=== PATIENT | female | born 1945 | race Caucasian/White ===

== ENCOUNTER 2022-11-17 10:53 | Emergency (ER) | payer MEDICARE, OTHER, SELFPAY ==
[2022-11-17 11:04] VITALS: BP 102/62; PULSE 61; RESP 18; TEMP 36.2; O2SAT 97; BMI 23.7
--- NOTE | 2022-11-17 12:11 | ED_ITS ---
HPI - General Adult General Time Seen by Provider: 12:11 Date Seen: 11/17/22 Chief complaint: Extremity Pain/Injury, Lower Stated complaint: infected toe on left foot Time Seen by Provider: 11/17/22 11:14 History of Present Illness HPI narrative: This is a very pleasant 77-year-old female with a history of onychomycosis affecting her toenails, hypertension,. She does not have a history of diabetes, cancer, immunosuppression, coronary artery disease, stroke peripheral artery disease. She presents to the ER today with redness and scaliness affecting the left foot 2nd toe. She 1st noticed it when she got up in the morning about a we ek ago. She did not have any antecedent injury or trauma. She has been keeping an eye on it has been getting a little bit red as the days go by and is painful and stings little bit. She is worried it might be infected. She has not had any swelling or redness moving up her foot or no red streaks on her legs. She has not had any other associated infection symptoms such as fever or chills, body aches, malaise. No known trauma. Related Data Home Medications Medication Instructions Recorded Confirmed atenolol 50 mg tablet 50 mg PO BID 11/17/22 11/17/22 furosemide 20 mg tablet 20 mg PO QAM 11/17/22 11/17/22 hydrochlorothiazide 25 mg tablet 25 mg PO BID 11/17/22 11/17/22 hydromorphone 4 mg tablet 4 mg PO Q3-4H PRN pain 11/17/22 11/17/22 levothyroxine 125 mcg tablet 125 mcg PO QAM 11/17/22 11/17/22 temazepam 15 mg capsule mg PO 11/17/22 Previous Rx's Medication Instructions Recorded cephalexin 500 mg capsule 500 mg PO QID #14 caps 11/17/22 cephalexin 500 mg capsule 500 mg PO QID #28 caps 11/17/22 Allergies Allergy/AdvReac Type Severity Reaction Status Date / Time desvenlafaxine Allergy Unknown Verified 11/17/22 11:10 mirtazapine Allergy Unknown Verified 11/17/22 11:10 NSAIDS (Non-Steroidal Allergy Unknown Verified 11/17/22 11:10 Anti-Inflamma [NSAIDS (Non-Steroidal Anti-Inflammatory Drug)] olanzapine Allergy Unknown Verified 11/17/22 11:10 Pristiq Allergy Unknown Uncoded 05/13/22 13:50 quentiapine Allergy Unknown Uncoded 05/13/22 13:50 Remeron Allergy Unknown Uncoded 05/13/22 13:50 Seroquel Allergy Unknown Uncoded 05/13/22 13:50 Exam Narrative: Exam Narrative: Constitutional: Appears well-developed and well-nourished. Alert. Conversant. Non toxic. HENT: Head: Atraumatic. Nose: Nose normal. Mouth/Throat: Oral mucosa is clear and moist. no trismus. Pharynx normal. Tonsils symmetric. No tonsillar enlargement, erythema, or exudate. Eyes: Conjunctivae normal. EOM normal. Pupils equal, round, and reactive to light. No scleral icterus. Neck: Normal range of motion. Neck supple. No tracheal deviation present. Cardiovascular: Normal rate, regular rhythm. No gallop. No friction rub. No murmur heard. Symmetric radial artery pulses . ANGELIC below Pulmonary/Chest: Effort normal. No stridor. No respiratory distress. No wheezes. No rales. No rhonchi . No tenderness. Abdominal: Soft. Bowel sounds normal. No distension. No mass. No tenderness. No rebound. No guarding. Musculoskeletal: RUE: Normal range of motion. No tenderness. No deformity LUE: Normal range of motion. No tenderness. No deformity RLE: Normal range of motion. No edema. No tenderness. No deformity LLE: Normal range of motion in her hip, knee, ankle, and her toes. Other than her left foot 2nd toe, no abnormality. No deformity She has redness and swelling affecting the distal 2/3 of her left 2nd toe. The redness appears to be slightly dark violaceous red rather than a bright pinkish re. The distal skin of the toe pad is scaly. There is no definite blackness or eschar to suggest gangrene. She has normal cap refill and symmetric with her right foot in the great toe and 2nd toe bilaterally. She has strong symmetric DP and PT pulses. Ankle brachial index is 0.97 on the right and 0.98 on the left. She has thickening and onychomycosis of all the toes on both feet. No definite paronychia. Lymph: No ascending lymphangitis Neurological: Alert and oriented to person, place, and time. Normal strength. CN II-VII intact. No sensory deficit. GCS eye subscore is 4. GCS verbal subscore is 5. GCS motor subscore is 6. Normal coordination Skin: Skin is warm and dry. No rash noted. No pallor. Normal capillary refill. Psychiatric: Normal mood. Normal affect. Const: Vital Signs, click to edit/add: Vital Signs - 24 hr 11/17/22 11:04 Temperature 97.1 F L Pulse Rate [Right Pulse Oximeter] 61 Respiratory Rate 18 Blood Pressure [Ri ght Upper Arm] 102/62 Pulse Oximetry 97 Oxygen Delivery Me thod Room Air Course Course ED Course: A calculated ABIs. ANGELIC right lower extremity 0.97 ANGELIC left lower extremity 0.98 Reevaluation(s) Reevaluation #1: Stable doing well. Vital Signs Vital signs: Initial Vital Signs Temperature 97.1 F L 11/17/22 11:04 Temperature Source Temporal Artery Scan 11/17/22 11:04 Pulse Rate 61 11/17/22 11:04 Respiratory Rate 18 11/17/22 11:04 Blood Pressure 102/62 11/17/22 11:04 Blood Pressure Mean 75 11/17/22 11:04 Blood Pressure Position Sitting 11/17/22 11:04 Pulse Oximetry 97 11/17/22 11:04 Oxygen Delivery Method Room Air 11/17/22 11:04 Vital Signs Temperature 97.1 F L 11/17/22 11:04 Pulse Rate 61 11/17/22 11:04 Respiratory Rate 18 11/17/22 11:04 Blood Pressure 102/62 11/17/22 11:04 Pulse Oximetry 97 11/17/22 11:04 Oxygen Delivery Method Room Air 11/17/22 11:04 Temperature 97.1 F L 11/17/22 11:04 Pulse Rate 61 11/17/22 11:04 Respiratory Rate 18 11/17/22 11:04 Blood Pressure 102/62 11/17/22 11:04 Pulse Oximetry 97 11/17/22 11:04 Oxygen Delivery Method Room Air 11/17/22 11:04 Medical Decision Making MDM Narrative Medical decision making narrative: This patient presents for evaluation of skin redness affecting the 2nd toe on her left foot. The history, physical exam is consistent with cellulitis. No definite area of paronychia. There do not appear at this time to be any complication of cellulitis including abscess, necrotizing fascitis, lymphangitis, lymphadenitis, osteomyelitis, sepsis, or shock. To no history of trauma raise concern for fracture. She does have onychomycosis which may be the window for infection. She does have a little bit of some purplish redness instead of bright pink redness which raise concern for possible ischemia. There is no associated gangrene. She does have normal cap refill symmetric with the other foot and symmetric/normal ABIs. Strong symmetric DP and PT pulses. No evidence for any acute limb ischemia. The patient is not immunosuppressed or diabetic. Supportive outpatient management is indicated with antibiotics. The patient is instructed to follow-up with primary care physician to ensure no progression and rapid resolution and given precautions to return if high fever, spread greater than 2cm outside of the marked area, worsening pain, vomiting or any other worsening. Questions answered and return precautions reviewed. Discharge Plan Discharge Clinical Impression: Cellulitis of toe, left Patient Disposition: Home, Self-Care Condition: Stable Instructions: Cellulitis (ED) Additional Instructions: As we discussed, we would expect her toe to get better over the next 3-4 days. If your not substantially and nearly completely improved by next Monday, follow up with her doctor. If you get worse, return to the ER right away. In particular, come back right away if you have spreading redness, red streaks moving up your foot or leg, fever or chills, weakness, or if you develop symptoms of poor blood flow such as blue discoloration of your foot, pallor, numbness in your foot or worsening pain. Activity Level: No Restrictions Discharge Diet: Regular Prescriptions: New cephalexin 500 mg capsule 500 mg PO QID Qty: 14 0RF cephalexin 500 mg capsule 500 mg PO QID Qty: 28 0RF No Action temazepam 15 mg capsule PO levothyroxine 125 mcg tablet 125 mcg PO QAM hydrochlorothiazide 25 mg tablet 25 mg PO BID furosemide 20 mg tablet 20 mg PO QAM hydromorphone 4 mg tablet 4 mg PO Q3-4H PRN (Reason: pain) atenolol 50 mg tablet 50 mg PO BID Stand Alone Forms: MyHealth Info Instructions
--- OUTSIDE RECORDS SUMMARY | 2022-11-17 12:54 | XMS_ITS | Continuity of Care Document ---
Author Name Unknown Organization [facility] Address [address] [place] [address] Phone Care Team Providers Care Orthodontist Vice President Name Role Phone Clifton Leggett MD Unavailable Unavailable Allergies, Adverse Reactions, Alerts Substance Reaction Status Criticality No Known Allergies Active No Inform ation Medications Medication Instructions Dosage Effective Dates (start - stop) Status Comments TEMAZEPAM (unknown strength) Not Available - Active CONZIP (unknown strength) Not Available - Active ALPRAZOLAM INTENSOL (unknown strength) Not Available - Active TIROSINT (unknown strength) Not Available - Active Procedures Procedure Date Office/Outpatient Visit,Est, Mod 2022 OFFICE/OUTPATIENT VISIT EST Phone Postop Followup Visit TLIF - Includes PSF at the same level - PA GOINS FACETC/FRMT ARTHRD LUM 1 Posterior Instrumentation, Non-segmental - PA PEEK/ Cage/ Implant, For Interbody Fusio n - PA Autograft, From Same Incision Pa Assist TLIF - Includes PSF at the same level Fe GOINS FACETC/FRMT ARTHRD LUM 1 Posterior Instrumentation, Non-segmental PEEK/ Cage/ Implant, For Interbody Fusio n Allograft, Morcelized, and/or BMP Autograft, From Same Incision Feb-21-202 3 Office/Outpatient Visit,Est, Mod 2022 Office/Outpatient Visit,New, Mod 2021 Office/Outpatient Visit,New, Mod 2013 Advance Directives Directive Yes / No Effective Date File Name No Information Encounters Encounter Description Practice Location Reason(s) For Visit Diagnoses Date Provider Providers Copied on Encounter Office/Outpa tient Visit,Est, Mod [facility], [address], [place], [place], [id number], [place] tel:[phone] [facility] Other spondylosis, lumbar regionOther spondylosis, thoracic region 3 Oleksandr Hardyothy. [facility] [place], [facility] [address] [place] [address], [address], [id number] , [place]. tel:[phone] Referring Provider: Lanette Lee [facility] [address] [place], [address]. tel:[phone] OFFICE/OUTPA TIENT VISIT EST Phone [facility], [address], [place], [id number], [place] tel:[phone] [facility] No Information 3 Oleksandr Hardyothy. [facility] [place], [address] [place] [address], [place] [address], [place], [place], [id number] , [place]. tel:[phone] Referring Provider: Lanette Lee [facility] [address] [place], [address]. tel:[phone] [facility], [address], [place], [address], [place] tel:[phone] [facility] Encounter for follow-up examination after completed treatment for conditions other than malignant neoplasm 3 Jaylen Birmingham. [facility] [place], [facility] E [address] [place] [address], [place], [address], [place]. tel:[phone] Referring Provider: Lanette Lee [facility] [address] [place], [address]. tel:[phone] [facility], [address], [place], [address], [place] tel:[phone] [facility] No Information 3 Jaylen Birmingham. [facility], [address] [address], [place], [address], [place]. tel:[phone] Referring Provider: Lanette Lee [facility] [address], [place], [address]. tel:[phone] [facility], [address], [place], [place], [address], [place] tel:[phone] [facility] No Information 3 Oleksandr Lazo. [facility] [place], [address] [place] [address], [address], [id number] , [place]. tel:[phone] Referring Provider: Lanette Lee [facility] [address] , [place], [address]. tel:[phone] Office/Outpa tient Visit,Est, Mod [facility], [address], [place], [place], [address], [place] tel:[phone] [facility] [place] Spinal stenosis, lumbar region with neurogenic claudicationOt her forms of scoliosis, site unspecifiedArt hrodesis status 3 Oleksandr Lazo. [facility] [place], [address], [place] [address], [place], [place], [id number] , [place]. tel:[phone] Referring Provider: Lanette Lee [facility] [address], [place], [address]. tel:[phone] Office/Outpa tient Visit,New, Mod [facility], [address], [place], [address], [place] tel:[phone] [facility] Spinal stenosis, lumbar region with neurogenic claudicationOt her forms of scoliosis, site unspecifiedSpo ndylolisthesis , lumbar regionArthrode sis status 2 Oleksandr Lazo. [facility] [place], [address], [place] [address], [place], [place], [id number] , [place]. tel:[phone] Referring Provider: Lanette Lee, [facility] [address], [place], [address]. tel:[phone] Office/Outpa tient Visit,New, Mod Z [facility], [address], [place], [address], [place] tel:[phone] [facility] No Information 4 Oleksandr Lazo. [facility], [address], [address], [place], [place], [address] , [place]. tel:[phone] Referring Provider: Carolann Parker, [facility] [address] [place], [address]. tel:[phone] Family History Family Member Type Diagnosis Age At Onset Problem (finding) Payers Payer name Insurance type Covered alliance party ID Authoriza tiartie(s) [employer] Wilfredo [id number] Social History Type Description Quantity Date Captured Comments Alcohol Use Details Unknown Caffeine Use Details Unknown Tobacco Use Status No Information Smoking Status No Information Sex Female Vital Signs Date / Time: Height Weight BMI Pulse Rate Blood Pressure Temperature Respiratory Rate Body Surface Area Head Circumference Head Circ. Percentile Wt./Renato. Percentile BMI percentile Pulse Ox Inhaled Ox 3:28 PM 63.00 in 58.513 kg (129.00 lbs) 22.8 5 kg/m eter (2) Chief Complaint And Reason For Visit No [...]
--- OUTSIDE RECORDS SUMMARY | 2022-11-17 12:54 | XMS_ITS | Continuity of Care Document ---
Author Name Unknown Organization [facility] Address [address] [place] [address] Phone Care Team Providers Care Combination Machine Tool Operator Name Role Phone Clifton Leggett MD Unavailable [...] tient Visit,Est, Mod [facility], [address], [place], [place], [address], [place] tel:[phone] [facility] Other spondylosis, lumbar regionOther spondylosis, thoracic region 3 Oleksandr Hardyothy. [facility] [place], [facility] [address] [place] [address], [address], [id number] , [place]. tel:[phone] Referring Provider: Lanette Lee [facility] [address] [place], [address]. tel:[phone] OFFICE/OUTPA TIENT VISIT EST Phone [facility], [address], [place], [id number], [place] tel:[phone] [facility] No Information 3 Oleksandr Hardyothy. [facility] [place], [address] [place] [address], [place] [address], [place], [place], [id number] , [place]. tel:[phone] Referring Provider: Lanette Lee [facility] [address] [place], [address]. tel:[phone] [facility], [address], [place], [address], [place] tel:[phone] [facility] Encounter for follow-up examination after completed treatment for conditions other than malignant neoplasm 3 Jaylen Birmingham. [facility] [place], [facility] [address] [place] [address], [place], [address], [place]. tel:[phone] Referring Provider: Lanette Lee [facility] [address] [place], [address]. tel:[phone] [facility], [address], [place], [address], [place] tel:[phone] [facility] No Information 3 Jaylen Birmingham. [facility], [address] [address], [place], [address], [place]. tel:[phone] Referring Provider: Lanette Lee [facility] [address], [place], [address]. tel:[phone] [facility], [address], [place], [place], [address], [place] tel:[phone] [facility] No Information 3 Oleksandr Lazo. [facility] [place], [address] [place] [address], [address], [id number] , [place]. tel:[phone] Referring Provider: Lanette Lee [facility] [address] , [place], [address]. tel:[phone] Office/Outpa tient Visit,Est, Mod [facility], [address], [place], [place], [id number], [place] tel:[phone] [facility] [place] Spinal stenosis, lumbar region with neurogenic claudicationOt her forms of scoliosis, site unspecifiedArt hrodesis status 3 Oleksandr Lazo. [facility] [place], [address] [place], [place] [address], [place], [place], [id number] , [place]. tel:[phone] Referring Provider: Lanette Lee [facility] [address], [place], [address]. tel:[phone] Office/Outpa tient Visit,New, Mod [facility], [address], [place], [address], [place] tel:[phone] [facility] Spinal stenosis, lumbar region with neurogenic claudicationOt her forms of scoliosis, site unspecifiedSpo ndylolisthesis , lumbar regionArthrode sis status 2 Oleksandr Lazo. [facility] [place], [address] [place], [place] [address], [place], [place], [address] , [place]. tel:[phone] Referring Provider: Lanette Lee, [facility] [address], [place], [address]. tel:[phone] Office/Outpa tient Visit,New, Mod Z [facility], [address], [place], [address], [place] tel:[phone] [facility] No Information 4 Oleksandr Lazo. [facility], [address], [address], [place], [place], [id number] , [place]. tel:[phone] Referring Provider: Carolann Parker, [facility] [address] [place], [address]. tel:[phone] Family History Family Member Type Diagnosis Age At Onset Problem (finding) Payers Payer name Insurance type Covered democrat ID Authoriza tiartie(s) [employer] Wilfredo [id number] Social History Type Description Quantity Date Captured [...]
== END 2022-11-17 12:57 | disposition home or self-care (01) ==
LOC: ED 12:51
PROVIDERS: Emergency Provider Emergency Medicine
DX: L03.031 Cellulitis of right toe (principal)
CPT/HCPCS: 99283; 99284

== ENCOUNTER 2023-01-28 15:59 | Emergency (ER) | payer MEDICARE, OTHER, SELFPAY ==
[2023-01-28 16:02] VITALS: BP 184/73; PULSE 62; RESP 16; TEMP 36.3; O2SAT 99; BMI 23.3
--- NOTE | 2023-01-28 16:53 | ED.ABDPAIN ---
HPI - Abdominal Pain General Chief Complaint: Abdominal Pain Stated Complaint: abdominal pain Time Seen by Provider: 01/28/23 16:09 History of Present Illness HPI narrative: This 77-year-old female comes in reporting sudden onset of severe abdominal pain that occurred a bit after taking her regularly scheduled Dilaudid medication. She states that she has a duodenal ulcer. She has chronic back pain and has had numerous surgeries in various areas of her body. She states that she takes Dilaudid 4 mg every 3-4 hours as needed. She reports that her pain is much better at this time. She denies having any fever, nausea, vomiting, diarrhea, or dysuria symptoms. Related Data Home Medications Medication Instructions Recorded Confirmed atenolol 50 mg tablet 50 mg PO BID 11/17/22 01/28/23 furosemide 20 mg tablet 20 mg PO QAM 11/17/22 01/28/23 hydromorphone 4 mg tablet 4 mg PO Q3-4H PRN pain 11/17/22 01/28/23 levothyroxine 125 mcg tablet 125 mcg PO QAM 11/17/22 01/28/23 temazepam 15 mg capsule mg PO 11/17/22 pregabalin 150 mg capsule 150 mg PO 3XD 01/28/23 01/28/23 triamterene 37.5 1 tab PO QAM 01/28/23 01/28/23 mg-hydrochlorothiazide 25 mg tablet valacyclovir 1 gram tablet 1,000 mg PO 3XD 01/28/23 valacyclovir 500 mg tablet 500 mg PO DAILY 01/28/23 01/28/23 Previous Rx's Medication Instructions Recorded cephalexin 500 mg capsule 500 mg PO QID #14 caps 11/17/22 cephalexin 500 mg capsule 500 mg PO QID #28 caps 11/17/22 pantoprazole 20 mg tablet,delayed 20 mg PO DAILY #30 tabs 01/28/23 release (Protonix) Allergies Allergy/AdvReac Type Severity Reaction Status Date / Time desvenlafaxine Allergy Unknown Verified 01/28/23 16:13 mirtazapine Allergy Unknown Verified 01/28/23 16:13 NSAIDS (Non-Steroidal Allergy Unknown Verified 01/28/23 16:13 Anti-Inflamma [NSAIDS (Non-Steroidal Anti-Inflammatory Drug)] olanzapine Allergy Unknown Verified 01/28/23 16:13 quentiapine Allergy Unknown Uncoded 05/13/22 13:50 Remeron Allergy Unknown Uncoded 05/13/22 13:50 Seroquel Allergy Unknown Uncoded 05/13/22 13:50 Review of Systems Status of ROS Reports: 10 or more systems reviewed and unremarkable except as noted in History and below Narrative Constitutional: No fevers, no weight gain or loss. Eyes: No discharge. No vision changes. HENT: No congestion, no sore throat, no ear pain. Cardiovascular: No chest pain, no palpitations. Respiratory: No shortness of breath, no wheezes, no cough. Gastrointestinal: No vomiting, no diarrhea. Abdominal pain as described above. Genitourinary: No dysuria, no hematuria. Musculoskeletal: Normal range of motion. Chronic back pain. Skin: No rashes, no pruritis. Neurological: No dizziness, weakness, sensory change, speech change. Endo/Heme/Allergies: No bruising or bleeding. No polydipsia. Pysch: no suicidality, no anxiety, no insomnia. All other systems reviewed and are negative. PFSH PFSH Social History Smoking Status: Former smoker Do you use any of these nicotine containing products: None Second hand tobacco smoke exposure: No How often do you have a drink containing alcohol: never AUDIT-C Alcohol total score: 0 Non-prescribed substance use: denies use Exam Narrative: Exam Narrative: Constitutional: Well-developed, well-nourished, no acute distress. HEENT: Normocephalic, atraumatic. Neck: Normal range of motion. Nontender. Supple. Heart: Regular. No murmurs. Normal rate. Intact distal pulses. Lungs: Clear to auscultation. No chest discomfort. No wheezes, rhonchi, or rales. Abdomen: Normal bowel sounds. Nontender. No rebound tenderness. Genitalia: Deferred. Back: No midline tenderness. Normal range of motion. Extremities: Normal range of motion. Her left middle finger is bandaged in a splint. Skin: Intact. No rash. Warm. No erythema or pallor. Neurologic: No altered sensation. No weakness. Alert and oriented. Psychiatric: No suicidality. No anxiety or depression. No insomnia. Nursing notes and vitals signs are reviewed. Const: Vital Signs, click to edit/add: Vital Signs - 24 hr 01/28/23 16:02 Temperature 97.4 F L Pulse Rate [Pulse Oximeter] 62 Respiratory Rate 16 Blood Pressure [Ri ght Upper Arm] 184/73 H Pulse Oximetry 99 Oxygen Delivery Me thod Room Air Course Vital Signs Vital signs: Initial Vital Signs Temperature 97.4 F L 01/28/23 16:02 Temperature Source Temporal Artery Scan 01/28/23 16:02 Pulse Rate 62 01/28/23 16:02 Respiratory Rate 16 01/28/23 16:02 Blood Pressure 184/73 H 01/28/23 16:02 Blood Pressure Mean 110 H 01/28/23 16:02 Blood Pressure Position Sitting 01/28/23 16:02 Pulse Oximetry 99 01/28/23 16:02 Oxygen Delivery Method Room Air 01/28/23 16:02 Vital Signs Temperature 97.4 F L 01/28/23 16:02 Pulse Rate 62 01/28/23 16:02 Respiratory Rate 16 01/28/23 16:02 Blood Pressure 184/73 H 01/28/23 16:02 Pulse Oximetry 99 01/28/23 16:02 Oxygen Delivery Method Room Air 01/28/23 16:02 Temperature 97.4 F L 01/28/23 16:02 Pulse Rate 62 01/28/23 16:02 Respiratory Rate 16 01/28/23 16:02 Blood Pressure 184/73 H 01/28/23 16:02 Pulse Oximetry 99 01/28/23 16:02 Oxygen Delivery Method Room Air 01/28/23 16:02 MDM - Abdominal Pain MDM Narrative Medical decision making narrative: This 77-year-old woman had rather sudden onset of severe upper epigastric abdominal pain which is now almost completely resolved. I am able to palpate deeply into her abdomen and she has no rebound tenderness. Bowel sounds are normal. Patient has chronic pain issues and is taking large doses of Dilaudid. She is not on any proton pump inhibitor. I did discuss lab and imaging options with the patient and stated reassurance with her exam and vital signs. She declined any further studies at this time. She feels okay to return home as her symptoms have almost completely resolved. She did receive a prescription for Protonix. Discharge Plan Discharge Clinical Impression: Abdominal pain Patient Disposition: Home, Self-Care Condition: Improved Additional Instructions: Take medication as prescribed. Follow up with MD return if worsening symptoms occur. Prescriptions: New pantoprazole [Protonix] 20 mg tablet,delayed release (DR/EC) 20 mg PO DAILY Qty: 30 2RF No Action temazepam 15 mg capsule PO levothyroxine 125 mcg tablet 125 mcg PO QAM furosemide 20 mg tablet 20 mg PO QAM hydromorphone 4 mg tablet 4 mg PO Q3-4H PRN (Reason: pain) atenolol 50 mg tablet 50 mg PO BID cephalexin 500 mg capsule 500 mg PO QID Qty: 14 0RF cephalexin 500 mg capsule 500 mg PO QID Qty: 28 0RF valacyclovir 1 gram tablet 1,000 mg PO 3XD valacyclovir 500 mg tablet 500 mg PO DAILY triamterene-hydrochlorothiazid 37.5-25 mg tablet 1 tab PO QAM pregabalin 150 mg capsule 150 mg PO 3XD Follow Up/Referrals: Provider,Not a Local [Primary Care Provider] - Stand Alone Forms: MyHealth Info Instructions
--- OUTSIDE RECORDS SUMMARY | 2023-01-28 17:08 | XMS_ITS | Continuity of Care Document ---
Author Name Unknown Organization [facility] Address [address], [address] [place] [address] Phone Care Team Providers Care Topper Press Operator Automatic Name Role Phone Ezra Cole MD Unavailable [...] Ju Inj Anes Facet Jt; Lumb/sac-2nd Level Advance Directives Directive Yes / No Effective Date File Name No Information Encounters Encounter Description Practice Location Reason(s) For Visit Diagnoses Date Provider Providers Copied on Encounter [facility], [address], [address], [place], [address], [place] tel:[phone] [facility] No Information 0 5 Kelsey Munguia. [address], [place], [place], [address] , [place]. tel:[phone] Referring Provider: Ezra Grider, [address], [place], [address]. tel:[phone] [facility], [address], [place], [place], [address], [place] tel:[phone] [facility] No Information 0-201 5 Kelsey Munguia. [address], [place], [place], [address] , [place]. tel:[phone] Referring Provider: Pebbles TORRES, [address] [facility], [facility], [place], [address]. tel:[phone] Family History Family Member Type Diagnosis Age At Onset No Information Payers Payer name Insurance type Covered constitution party ID Authorizabella smallwood(s) [employer] CI [id number] Social History Type Description Quantity Date Captured [...]
--- OUTSIDE RECORDS SUMMARY | 2023-01-28 17:08 | XMS_ITS | Continuity of Care Document ---
Author Name Unknown Organization [facility] Address [address] [place] [address] Phone Care Team Providers Care Tire Manager Name Role Phone Clifton Leggett MD Unavailable Unavailable Allergies, Adverse Reactions, Alerts Substance Reaction Status Criticality No Known Allergies Active No Inform ation Medications Medication Instructions Dosage Effective Dates (start - stop) Status Comments TIROSINT (unknown strength) Not Available - Active ALPRAZOLAM INTENSOL (unknown strength) Not Available - Active CONZIP (unknown strength) Not Available - Active TEMAZEPAM (unknown strength) Not Available - Active Procedures [...] Diagnoses Date Provider Providers Copied on Encounter [facility], [address], [place], [place], [id number], [place] tel:[phone] No Information 3 Oleksandr Lazo. [facility] [place], [address] [place] [address], [address], [id number] , [place]. [phone] Office/Outpa tient Visit,Est, Mod [facility], [address], [place], [place], [address], [place] [phone] [facility] Other spondylosis, lumbar regionOther spondylosis, thoracic region 3 Oleksandr Lazo. [facility] [place], [address] [place] [address], [facility] [address], [place], [id number] , [place]. tel:[phone] Referring Provider: Lanette Lee [facility] [address], [place], [address]. tel:[phone] OFFICE/OUTPA TIENT VISIT EST Phone [facility], [address], [place], [place], [address], [place] tel:[phone] [facility] No Information 3 Oleksandr Lazo. [facility] [place], [address], [address], [place], [place], [address] , [place]. tel:[phone] Referring Provider: Lanette Lee [facility] [address] , [place], [address]. tel:[phone] [facility], [address], [place], [place], [address], [place] tel:[phone] [facility] [place] Encounter for follow-up examination after completed treatment for conditions other than malignant neoplasm 3 Todd Birmingham. [facility] [place], [address], [place], [address], [place]. [phone] Referring Provider: [facility] [address], [place], [address]. tel:[phone] [facility], [address], [place], [place], [address], [place] tel:[phone] [facility] No Information 3 Todd Birmingham. [facility], [address], [place], [address], [place]. [phone] Referring Provider: Sravan [facility] [address], [place], [address]. tel:[phone] [facility], [address], [place], [place], [address], [place] tel:[phone] [facility] No Information 3 Oleksandr Lazo. [facility], [address], [address], [place], [place], [address] , [place]. tel:[phone] Referring Provider: Sravan [facility] [address], [place], [address]. tel:[phone] Office/Outpa tient Visit,Est, Mod [facility], [address], [place], [place], [address], [place] tel:[phone] [facility] [place] Spinal stenosis, lumbar region with neurogenic claudicationOt her forms of scoliosis, site unspecifiedArt hrodesis status 3 Oleksandr Lazo. [facility], [address], [address], [place], [place], [address] , [place]. [phone] Referring Provider: Lanette Lee [facility] [address], [place], [address]. tel:[phone] Office/Outpa tient Visit,New, Mod [facility], [address], [place], [place], [address], [place] tel:[phone] [facility] Spinal stenosis, lumbar region with neurogenic claudicationOt her forms of scoliosis, site unspecifiedSpo ndylolisthesis , lumbar regionArthrode sis status 2 Oleksandr Lazo. [facility], [address], [address], [place], [place], [address] , [place]. [phone] Referring Provider: Lanette Lee, [facility] [address], [place], [address]. tel:[phone] Office/Outpa tient Visit,[facility], [facility] Z [facility] [place], [address] [facility], [place], [address], [place] tel:[phone] [facility] No Information 4 Oleksandr Lazo. [facility], [address], [address], [place], [place], [address] , [place]. [phone] Referring Provider: Carolann Parker, [facility] [address], [place], [address]. tel:[phone] Family History Family Member Type Diagnosis Age At Onset Problem (finding) Payers Payer name Insurance type Covered constitution party ID Authoriza tion(s) [employer] Wilfredo STRATTON [id number] Social History Type Description Quantity Date Captured Comments Sex Female Smoking Status No Information Chief Complaint And Reason For Visit No [...]
== END 2023-01-28 17:19 | disposition home or self-care (01) ==
LOC: ED 17:06
PROVIDERS: Emergency Provider Emergency Medicine Emergency Medical Services; PCP Family Medicine
DX: R10.13 Epigastric pain (principal)
CPT/HCPCS: 99283; 99284

== ENCOUNTER 2025-01-22 13:16 | Emergency (ER) | payer MEDICARE, OTHER, SELFPAY ==
--- OUTSIDE RECORDS SUMMARY | 2014-08-13 08:15 | XMS_ITS | Continuity of Care Document ---
Author Organization [facility] Address [address] [place] [address] Phone Care Team Providers Care Structural Manager Name Role Phone Ezra Cole MD Unavailable Unavailable Medications Medication Instructions Dosage Effective Dates (start - stop) Status Comments Tirosint 75 mcg capsule take 1 capsule by oral route every day 75 MCG - Active temazepam 30 mg capsule take 1 capsule by oral route every day at bedtime as needed 30 MG - Active Xanax 1 mg tablet take 1 tablet by ora l route 3 times every day 1 MG - Active tramadol 50 mg tablet take 1 tablet by o ral route every 6 hours as needed 50 MG - Active metoprolol tartrate 50 mg tablet take 1 tablet by oral route 2 times every day with meals 50 MG - Active Procedures Procedure Date Inj Anes Facet Jt; Lumb/sac-2nd Level Ju Inj Anes Facet Jt; Lumb/sac-1st Level Ju Inj Anes Facet Jt; Lumb/sac-1st Level Ju Inj Anes Facet Jt; Lumb/sac-2nd Level Ju Advance Directives Directive Yes / No Effective Date File Name No Information Encounters Encounter Description Practice Location Reason(s) For Visit Diagnoses Date Provider Providers Copied on Encounter [facility], [address], [address], [place], [address], [place] tel:[phone] [facility] [place] No Information 0 5 Kelsey Munguia. [address], [place], [place], [address] , [place]. tel:[phone] Referring Provider: Ezra Grider, [address], [place], [address]. tel:[phone] [facility], [address], [place], [place], [address], [place] tel:[phone] [facility] No Information 0-201 5 Kelsey Munguia. [address], [place], [place], [address] , [place]. tel:[phone] Referring Provider: Pebbles TORRES, [address] [facility], [facility], [place], [address]. tel:[phone] Family History Family Member Type Diagnosis Age At Onset No Information Payers Payer name Insurance type Covered democrat ID izabella smallwood(s) [employer] Select-Commercial CI [id number] Social History Type Description Quantity Date Captured Comments Alcohol Use Details Unknown Caffeine Use Details Unknown Tobacco Use Status Never smoked tobacco 2014 Smoking Status Never smoker Non-Smoking Tobacco Use Details : No Details Available : No Details Available Sex Female Vital Signs Date / Time: Height Weight BMI Pulse Rate Blood Pressure Temperature Respiratory Rate Body Surface Area Head Circumference Head Circ. Percentile Wt./Renato. Percentile BMI percentile Pulse Ox Inhaled Ox 1:41 PM 64 /min 158/76 mm[Hg] 98.20 F 99 % 2:15 PM 71 /min 163/84 mm[Hg] 100 % 2:20 PM 69 /min 150/88 mm[Hg] 100 % 2:25 PM 74 /min 167/98 mm[Hg] 100 % 2:57 PM 70 /min 156/80 mm[Hg] 72 % 2:35 PM 69 /min 143/73 mm[Hg] 74 % Chief Complaint And Reason For Visit No Information Reason For Referral Reason For Referral No Information History Of Present Illness Encounter Date Complaint History Of Prese nt Illness No Information Functional Status Date Functional Assessmen t No Information Instructions Date Instruction Additional Infor mation No Information Assessments Type Assessment Date No Information Patient Care Teams Name Effective Dates (start - stop) Status Members No Information
--- OUTSIDE RECORDS SUMMARY | 2014-08-13 08:15 | XMS_ITS | Continuity of Care Document ---
Author Organization [facility] Address [address] [place] [address] Phone Care Team Providers Care Sales Correspondence Clerk Name Role Phone Ezra Cole MD Unavailable [...] Diagnoses Date Provider Providers Copied on Encounter [facility], [address], [address], [place], [address], [place] tel:[phone] [facility] [place] No Information 0 5 Kelsey Munguia. [address], [place], [place], [address] , [place]. tel:[phone] Referring Provider: Ezra Grider, [address], [place], [address]. tel:[phone] [facility], [address], [place], [place], [address], [place] tel:[phone] [facility] [place] No Information 0-201 5 Kelsey Munguia. [address], [place], [place], [address] , [place]. tel:[phone] Referring Provider: Pebbles TORRES, [address] [facility], [facility], [place], [address]. tel:[phone] Family History Family Member Type Diagnosis Age At Onset No Information Payers Payer name Insurance type Covered democrat ID izabella smallwood(s) [employer] Select-Commercial CI [id number] Social History Type Description Quantity Date Captured [...]
--- OUTSIDE RECORDS SUMMARY | 2014-08-13 08:15 | XMS_ITS | Continuity of Care Document ---
Author Organization [facility] Address [address] [place] [address] Phone Care Team Providers Care Air Twister Winder Name Role Phone Ezra Cole MD Unavailable [...] Diagnoses Date Provider Providers Copied on Encounter [facility], [address], [address], [place], [address], [place] tel:[phone] [facility] [place] No Information 0 5 Kelsey Munguia. [address], [place], [place], [address] , [place]. tel:[phone] Referring Provider: Ezra Grider, [address], [place], [address]. tel:[phone] [facility], [address], [place], [place], [address], [place] tel:[phone] [facility] [place] No Information 0-201 5 Kelsey Munguia. [address], [place], [place], [address] , [place]. tel:[phone] Referring Provider: Peblbes TORRES, [address] [facility], [facility], [place], [address]. tel:[phone] Family History Family Member Type Diagnosis Age At Onset No Information Payers Payer name Insurance type Covered constitution party ID izabella smallwood(s) Med[employer] Select-Commercial CI [id number] Social History Type Description Quantity Date Captured [...]
--- OUTSIDE RECORDS SUMMARY | 2014-08-13 08:15 | XMS_ITS | Continuity of Care Document ---
Author Organization [facility] Address [address] [place] [address] Phone Care Team Providers Care Chain Maker Loom Control Name Role Phone Ezra Cole MD Unavailable Unavailable Medications Medication Instructions Dosage Effective Dates (start - stop) Status Comments metoprolol tartrate 50 mg tablet take 1 tablet by oral route 2 times every day with meals 50 MG - Active tramadol 50 mg tablet take 1 tablet by o ral route every 6 hours as needed 50 MG - Active Xanax 1 mg tablet take 1 tablet by ora l route 3 times every day 1 MG - Active temazepam 30 mg capsule take 1 capsule by oral route every day at bedtime as needed 30 MG - Active Tirosint 75 mcg capsule take 1 capsule by oral route every day 75 MCG - Active Procedures Procedure Date Inj Anes Facet Jt; Lumb/sac-2nd Level Ju Inj Anes Facet Jt; Lumb/sac-1st Level Ju Inj Anes Facet Jt; Lumb/sac-1st Level Ju Inj Anes Facet Jt; Lumb/sac-2nd Level Ju Advance Directives Directive Yes / No Effective Date File Name No Information Encounters Encounter Description Practice Location Reason(s) For Visit Diagnoses Date Provider Providers Copied on Encounter [facility], [address], [address], [place], [address], [place] tel:[phone] [facility] No Information 0 5 Kelsey Munguia. [address], [place], [place], [address] , [place]. tel:[phone] Referring Provider: Ezra Grider, [address], [place], [address]. tel:[phone] [facility], [address], [place], [place], [address], [place] tel:[phone] [facility] No Information 0-201 5 Kelsey Munguia. [address], [place], [place], [address] , [place]. tel:[phone] Referring Provider: Pebbles TORRES, [address] [facility], [facility], [place], [address]. tel:[phone] Family History Family Member Type Diagnosis Age At Onset No Information Payers Payer name Insurance type Covered alliance party ID izabella smallwood(s) [employer] Select-Commercial CI [id number] Social History Type Description Quantity Date Captured [...]
--- OUTSIDE RECORDS SUMMARY | 2014-08-13 08:15 | XMS_ITS | Continuity of Care Document ---
Author Organization [facility] Address [address] [place] [address] Phone Care Team Providers Care Drug Abuse Program Coordinator Name Role Phone Ezra Cole MD Unavailable [...] Copied on Encounter [facility], [address], [address], [place], [address], [place] tel:[phone] [facility] [place] No Information 0 5 Kelsey Munguia. [address], [place], [place], [address] , [place]. tel:[phone] Referring Provider: Ezra Grider, [address], [place], [address]. tel:[phone] [facility], [address], [place], [place], [address], [place] tel:[phone] [facility] No Information 0-201 5 Kelsey Munguia. [address], [place], [place], [address] , [place]. tel:[phone] Referring Provider: Pebbles TORRES, [address] [facility], [facility], [place], [address]. tel:[phone] Family History Family Member Type Diagnosis Age At Onset No Information Payers Payer name Insurance type Covered alliance party ID izabella smallwood(s) Med[employer] Select-Commercial CI [id number] Social History Type Description Quantity Date Captured [...]
--- OUTSIDE RECORDS SUMMARY | 2014-08-13 08:15 | XMS_ITS | Continuity of Care Document ---
Author Organization [facility] Address [address] [place] [address] Phone Care Team Providers Care Foreclosure Field Inspector Name Role Phone Ezra Cole MD Unavailable [...] Diagnoses Date Provider Providers Copied on Encounter [facility], [address], [address], [place], [address], [place] tel:[phone] [facility] [place] No Information 0 5 Kelsey Munguia. [address], [place], [place], [address] , [place]. tel:[phone] Referring Provider: Ezra Grider, [address], [place], [address]. tel:[phone] [facility], [address], [place], [place], [address], [place] tel:[phone] [facility] [place] No Information 0-201 5 Kelsey Munguia. [address], [place], [place], [address] , [place]. tel:[phone] Referring Provider: Pebbles TORRES, [address] [facility], [facility], [place], [address]. tel:[phone] Family History Family Member Type Diagnosis Age At Onset No Information Payers Payer name Insurance type Covered libertarian ID izabella smallwood(s) Med[employer] Choice Select-Commercial CI [id number] Social History Type Description Quantity Date Captured [...]
--- OUTSIDE RECORDS SUMMARY | 2025-01-22 13:19 | XMS_ITS | Clinical Summary ---
Author Organization [facility] Address [address] [place] [address]. [place] [address] Care Team Providers Care Export Sales Manager Name Role Phone Lanette Lee Primary Care Provider Allergies No known active allergies Medications ALPRAZolam (XANAX) 1 MG tablet [ALPRAZOLAM (XANAX) 1 MG TABLET] Take 0.5 mg by mouth every 6 (six) hours as needed for anxiety. 10/28/2014 Active cholecalciferol , vitamin D3, 2,000 unit cap [CHOLECALCIFE ROL, VITAMIN D3, 2,000 UNIT CAP] Take 2,000 Units by mouth daily. 10/28/2014 Active levothyroxine (SYNTHROID, LEVOTHROID) 75 MCG tablet [LEVOTHYROXIN E (SYNTHROID, LEVOTHROID) 75 MCG TABLET] Take 75 mcg by mouth daily. 10/28/2014 Active MULTIVITAMIN ORAL [MULTIVITAMIN ORAL] Take 1 tablet by mouth daily. 10/28/2014 Active temazepam (RESTORIL) 15 mg capsule [TEMAZEPAM (RESTORIL) 15 MG CAPSULE] Take 15 mg by mouth bedtime as needed, may repeat once for sleep. 10/28/2014 Active metoprolol tartrate (LOPRESSOR) 50 MG tablet [METOPROLOL TARTRATE (LOPRESSOR) 50 MG TABLET] Take 50 mg by mouth 2 (two) times a day. 10/30/2014 Active levofloxacin (LEVAQUIN) 500 MG tablet [LEVOFLOXACIN (LEVAQUIN) 500 MG TABLET] Take 500 mg by mouth daily. For 5 days 10/29/2014 Active polyethylene glycol (MIRALAX) 17 gram packet [POLYETHYLENE GLYCOL (MIRALAX) 17 GRAM PACKET] Take 17 g by mouth as needed. Uses 2-3 times per week 10/30/2014 Active Active Problems Problem Noted Date Diagnosed Date Spondylolisthesis at L4-L5 level 10/30/2014 Essential hypertension 10/30/2014 Insomnia 10/30/2014 Anxiety disorder 10/30/2014 Hypothyroidism 10/30/2014 Chronic pain 10/30/2014 Family History Medical History Relation Comments Anesthesia Reaction No family hx of Social History Tobacco Use Types Packs/Day Years Used Date Smoking Tobacco: Former Cigarettes Q uit: 03/06/1964 Alcohol Use Standard Drinks/Week Comments No 0 (1 standard drink = 0.6 oz pur e alcohol) Adolescent Education Answer Date Record ed Getting School Help Needed Not on file 11/26 Comments Unknown Sex and Gender Information Value Date Recorded Sex Assigned at Not on file Legal Sex Female 1:45 PM CDT Gender Identity Not on file Sexual Orientation Not on file Last Filed Vital Signs Vital Sign Reading Time Taken Comments Blood Pressure 167/80 09/14/2022 5:42 PM CDT Pulse 80 09/14/2022 5:42 PM CDT Temperature 36.7 C (98 F) 09/14/2022 5:42 PM CDT Respiratory Rate 20 09/14/2022 5:42 PM CDT Oxygen Saturation 99% 09/14/2022 5:42 PM CDT Inhaled Oxygen Concentration - - Weight 57.6 kg (127 lb) 10/28/2014 2:00 PM CDT Height 165.1 cm (5' 5) 10/28/2014 2:00 PM CDT Body Mass Index 21.13 10/28/2014 2:00 PM CDT Plan of Treatment Health Maintenance Due Date Last Done Comments ADVANCE CARE PLANNING 1945 ANNUAL REVIEW OF HM ORDERS 1945 DEXA 1945 TARIK ASSESSMENT 1945 PHQ-9 1945 TSH W/FREE T4 REFLEX 1945 HEPATITIS C SCREENING 07/21/1963 LIPID 1985 LUNG CANCER SCREENING 07/21/1995 FALL RISK ASSESSMENT 2010 RSV VACCINE (1 - 1-dose 75+ series) 2020 BMP 05/10/2023 05/09/2022 MEDICARE ANNUAL WELLNESS VISIT 07/13/2023 07/12/2022, 12/22/2020, 10/25/2019 PHQ-2 (once per calendar year) 2024 COVID-19 VACCINE ( season) 2024 12/14/2021, 10/12/2021, 01/26/2021, Additional history exists INFLUENZA VACCINE (#1) 2024 , 12/17/2020, 12/17/2020, Additional history exists DIABETES SCREENING 05/09/2025 05/09/2022 DTAP/TDAP/TD VACCINE (3 - Td or Tdap) 03/30/2032 03/30/2022, 03/11/2011, 07/04/2002 PNEUMOCOCCAL VACCINE 50+ YEARS Completed 07/23/2015, 03/11/2011 ZOSTER VACCINE Completed 02/14/2020, 11/05, 11/19/2019 HPV VACCINE (No Doses Required) Completed MENINGITIS VACCINE Aged Out No longer eligible based on patient's age to complete this topic Medical Devices Implanted Type Area Supervisor [employer] Device Identifier Shelf Expiration Date Model / Serial / Lot Bone Sub Vitoss Ba2x 2.5cc Foam Pack - - Sna Implanted:Qt y: 1 on 10/30/2014 Bone/Tissue Synthetic N/A: Spine Lumbar ORTHOVITA 11/04/2015 / NA / [id number] Description:Anterior Byproducts Extractor Multifire Medium [id number] - Sn/A Implanted:Qt y: 1 on 10/30/2014 Metallic Hardware/Anc hor N/A: Abdomen [facility] 05/05/2019 MCM20 / N/A / [id number] Spacer Vertebral [id number] 8 Deg - [id number] - Sna Implanted:Qt y: 1 on 10/30/2014 Metallic Hardware/Anc hor Bilateral: Spine Lumbar CHASTITY SP [id number] / NA / NA Description:Anterior Screw Bone 5x25mm - [id number] - Sna Implanted:Qt y: 3 on 10/30/2014 Metallic Hardware/Anc hor Bilateral: Spine Lumbar CHASTITY SP [id number] / NA / NA Description:Anterior Plate Locking [id number] - Sna Implanted:Qt y: 1 on 10/30/2014 Metallic Hardware/Anc hor Bilateral: Spine Lumbar CHASTITY SP [id number] / NA / NA Description:Anterior Bilateral Breasts Lumbar Spacer Procedures Procedure Name Priority Date/Time Associated Diagnosis Comments BASIC METABOLIC PANEL Routine 05/09/2022 7:34 AM SPECIAL EFFECTS TECHNICIAN Essential (primary) hypertension from Last 3 Months or Most Recently Relevant to Health Maintenance Results * (ABNORMAL) Basic metabolic panel (05/09/2022 7:34 AM SPECIAL EFFECTS TECHNICIAN) Sodium 135(L) 136 - 145 mmol/L 05/09/2022 11:56 AM SPECIAL EFFECTS TECHNICIAN [facility] Potassium 4.5 3.4 - 5.3 mmol/L 05/09/2022 11:56 AM SPECIAL EFFECTS TECHNICIAN [facility] Chloride 96(L) 98 - 107 mmol/L 05/09/2022 11:56 AM SPECIAL EFFECTS TECHNICIAN [facility] Carbon Dioxide (CO2) 28 22 - 29 mmol/L 05/09/2022 11:56 AM SPECIAL EFFECTS TECHNICIAN [facility] Anion Gap 11 7 - 15 mmol/L 05/09/2022 11:56 AM SPECIAL EFFECTS TECHNICIAN [facility] Urea Nitrogen 23.2(H) 8.0 - 23.0 mg/dL 05/09/2022 11:56 AM SPECIAL EFFECTS TECHNICIAN [facility] Creatinine 0.68 0.51 - 0.95 mg/dL 05/09/2022 11:56 AM SPECIAL EFFECTS TECHNICIAN [facility] Calcium 9.3 8.8 - 10.2 mg/dL 05/09/2022 11:56 AM SPECIAL EFFECTS TECHNICIAN [facility] Glucose 84 70 - 99 mg/dL 05/09/2022 11:56 AM SPECIAL EFFECTS TECHNICIAN [facility] GFR Estimate 90 >60 mL/min/1.7 3m2 05/09/2022 11:56 AM SPECIAL EFFECTS TECHNICIAN [facility] Comment:eGFR calculated us2020 CKD-EPI equation. Blood STRUCTURE OF RIGHT UPPER LIMB / Unknown Venipuncture / Unknown 05/09/2022 7:34 AM SPECIAL EFFECTS TECHNICIAN 05/09/2022 10:29 AM SPECIAL EFFECTS TECHNICIAN us Marj Otto MD LAB - BLOOD ORDERABLES Final R esult [facility] [address] [facility] [address], [address] [place] [address], [facility] [phone] from Last 3 Months or Most Recently Relevant to Health Maintenance Insurance [address] [facility] [place] [id number] [employer] Care Teams Export Sales Manager Relationship Specialty Start Date End Date Lanette Lee [address] [place] [address] PCP - General Family Practice 02/03/14
--- OUTSIDE RECORDS SUMMARY | 2025-01-22 13:19 | XMS_ITS | Clinical Summary ---
Author Organization [facility] Address [address] [place] [address] Care Team Providers [facility] Associate Professor Name Role Phone Neville Garcia MD Unavailable [phone] Lanette Lee MD Primary Care Provider [phone] Petey Charles MD Unavailable [phone] Allergies Active Allergy Reactions Criticality Noted Date Comments Nsaids (Non-Steroidal Anti-Inflammatory Drug) Nausea Only Low 03/27/2017 Desvenlafaxine Nausea Only 11/12/2021 Mirtazapine Constipation,Mental Status Change Unknown 10/06/2021 Stickney loopy Quetiapine GI Upset Low 10/30/2015 Other reaction(s): GI intolerance Per External Records Trazodone GI Upset Low 10/30/2015 Other reaction(s): Other (see comments) Per External Records Olanzapine Other - Describe In Comment Field 05/01/2022 Seemed to have increased restlessness, tremor Medications MULTIVITAMIN (MULTI-DAY ORAL) Take 1 tablet by mouth once daily. 04/07/19 16 Active cholecalciferol, Vitamin D3, 2,000 unit tablet Take 1 tablet by mouth once daily. 5000 units taken during winter months 0 01/24/20 20 Active omega 6-ozz-jou-fish oil 100-160-1,000 mg cap Take 1 Capsule by mouth once daily. 0 03/30/19 23 Active polyethylene glycol (MIRALAX; GLYCOLAX) 17 g packet Mix 17 g in liquid then take by mouth once daily. May also mix 17 g (1 Packet) once daily if needed for Constipation. 0 05/12/19 23 Active acetaminophen (TYLENOL EXTRA STRGTH) 500 mg tabletIndications: Spinal stenosis of lumbar region with neurogenic claudication Take 1 Tablet (500 mg) by mouth four times daily. 0 07/13/19 23 Active melatonin 10 mg tabIndications:Ins omnia, unspecified type Take 1 Tablet (10 mg) by mouth once daily in the evening. Take 1-2 hours prior to going to bed 12/14/19 Active pantoprazole (PROTONIX) 20 mg tabletIndications: Abdominal pain, epigastric Take 1 Tablet (20 mg) by mouth once daily if needed for GI Upset. 90 Tablet 1 03/26/19 25 Active triamterene-hydroc hlorothiazide (37.5-25 mg) (MAXZIDE-25) 37.5-25 mg tabletIndications: HTN (hypertension) Take 1 Tablet by mouth once daily in the morning. 90 Tablet 3 09/26/19 25 Active atenoloL (TENORMIN) 50 mg tabletIndications: HTN (hypertension) Take 1 Tablet (50 mg) by mouth two times daily. 180 Tablet 3 09/26/19 25 Active valACYclovir (VALTREX) 500 mg tabletIndications: Recurrent oral herpes simplex Take 1 Tablet (500 mg) by mouth once daily. 90 Tablet 3 09/26/19 25 Active naloxone (Narcan) 4 mg/actuation nasal sprayIndications:S angel stenosis of lumbar region without neurogenic claudication,Pain management contract agreement Additional doses may be given every 2 to 3 minutes until emergency medical assistance arrives.ADMINI STER A SINGLE SPRAY OF NARCAN IN ONE NOSTRIL. REPEAT AFTER 3 MINUTES IF NO OR MINIMAL RESPONSE. 1 Each 09/30/19 25 Active cephalexin 500 mg capsuleIndications :Lymphadenitis, acute Take 1 Capsule (500 mg) by mouth three times daily. 30 Capsule 10/30/19 25 Active furosemide (LASIX) 20 mg tabletIndications: Edema, unspecified type,Chronic diastolic congestive heart failure (HC) TAKE 2 TABLETS BY MOUTH IN THE MORNING AND 2 in afternoon 360 Tablet 3 10/30/19 25 Active pregabalin (LYRICA) 150 mg capsuleIndications :Spinal stenosis of lumbar region without neurogenic claudication Take 1 capsule by mouth twice daily 180 Capsule 1 12/05/19 25 Active temazepam (RESTORIL) 15 mg capsuleIndications :Insomnia, unspecified type Take 1 Capsule (15 mg) by mouth at bedtime if needed, may repeat once for Sleep. 60 Capsule 5 12/25/19 25 Active DULoxetine (CYMBALTA) 60 mg Delayed-release capsuleIndications :Recurrent major depressive disorder, in partial remission Take 1 Capsule (60 mg) by mouth two times daily. 180 Capsule 1 12/25/19 25 Active HYDROmorphone 4 mg tabletIndications: Spinal stenosis of lumbar region without neurogenic claudication,Pain management contract agreement Take 1 Tablet (4 mg) by mouth 4 times daily if needed (chronic pain). 120 Tablet 12/28/19 25 Active HYDROmorphone 4 mg tabletIndications: Spinal stenosis of lumbar region without neurogenic claudication,Pain management contract agreement Take 1 Tablet (4 mg) by mouth 4 times daily if needed (chronic pain). 120 Tablet 02/25/20 25 Active HYDROmorphone 4 mg tabletIndications: Spinal stenosis of lumbar region without neurogenic claudication,Pain management contract agreement Take 1 Tablet (4 mg) by mouth 4 times daily if needed (chronic pain). 120 Tablet 01/27/20 25 Active HYDROmorphone 4 mg tabletIndications: Spinal stenosis of lumbar region without neurogenic claudication,Pain management contract agreement Take 1 Tablet (4 mg) by mouth 4 times daily if needed (chronic pain). 120 Tablet 03/25/19 26 Active levothyroxine (SYNTHROID) 112 mcg tabletIndications: Acquired hypothyroidism Take 1 Tablet (112 mcg) by mouth before breakfast. 90 Tablet 3 01/13/20 25 Active temazepam 15 mg capsuleIndications :Insomnia, unspecified type Take 1 Capsule (15 mg) by mouth at bedtime if needed, may repeat once for Sleep. 60 Capsule 5 07/10/19 25 025 Discontin ued(*Med complete/ Regimen complete/ Level of care change) HYDROmorphone 4 mg tabletIndications: Spinal stenosis of lumbar region without neurogenic claudication,Pain management contract agreement Take 1 Tablet (4 mg) by mouth 4 times daily if needed (chronic pain). 120 Tablet 10/26/19 25 025 Discontin ued(Reord er (E-cancel not sent)) levothyroxine (SYNTHROID) 112 mcg tabletIndications: Acquired hypothyroidism Take 1 Tablet (112 mcg) by mouth before breakfast. 90 Tablet 11/05/19 25 025 Discontin ued(Reord er (E-cancel not sent)) DULoxetine (CYMBALTA) 60 mg Delayed-release capsuleIndications :Recurrent major depressive disorder, in partial remission Take 1 Capsule (60 mg) by mouth two times daily. 120 Capsule 11/24/19 25 025 Discontin ued(Reord er (E-cancel not sent)) HYDROmorphone 4 mg tabletIndications: Spinal stenosis of lumbar region without neurogenic claudication,Pain management contract agreement Take 1 Tablet (4 mg) by mouth 3 times daily if needed (chronic pain). 90 Tablet 01/10/20 25 025 Discontin ued(Reord er (E-cancel not sent)) HYDROmorphone 4 mg tabletIndications: Spinal stenosis of lumbar region without neurogenic claudication,Pain management contract agreement Take 1 Tablet (4 mg) by mouth 3 times daily if needed (chronic pain). 90 Tablet 12/12/19 25 025 Discontin ued(Reord er (E-cancel not sent)) Active Problems Problem Noted Date Diagnosed Date Osteopenia of multiple sites 11/14/2024 Overview (11/14/2024): Dexascan 11/2024 moderate ostepenia hips and radius. Plan lifestyle measures, optimize Vitamin D and recheck in 2 years. s/p left total shoulder arth roplasty with 15 degree posterior glenoid augment, biceps resection/transplantation, DOS: 07.2510/11/2023 Hx of duodenal ulcer 04/18/2023 Overview (04/18/2023): 1970's Primary osteoarthritis of left shoulder 04/18/19 Osteoarthritis of left glenohumeral joint 2023 Lumbar spinal stenosis 05/03/2022 Chronic diastolic congestive heart failure 12/22 Right heart enlargement 07/04/2018 Non-rheumatic tricuspid valve insufficiency 03/2018 Pain of right lower extremity 01/27/2018 Pain management contract agreement 12/05/2017 Overview (09/29/2024): Updated 09/25/24 lumbar spinal stenosis . Hydromorphone 4 mg 3-4 per day. Max 64 MME. No further back surgeries recommended. Tox screen 10/2024 Updated 07/25/23 hydromorphone 4 mg ;3-4 per day; max of 4 per day 64 MME. Spinal stenosis and left shoulder OSTEOARTHRITIS with replacement scheduled for September 2023. No further back surgeries recommended. Tox screen 07/25/23. Updated 12/14/21 Oxycodone 5 mg #180 MME 45 spinal stenosis.Lyrica, Plan right SI joint injection and refer to spine clinic for another opinion. Updated 11/10/20 Oxycodone 5 mg #240 MME 60, spinal stenosis. Seeing spine clinic and having injections also. Stable on this dose , also takes lyrica, cymbalta . Compliance screen 05/21/21 Signed contract 12/05/[address] Lanette Lee; Lumbar spinal stenosis s/p anterior and posterior fusions [id number] and s/p right knee surgery and pathologic femur fracture 2017; plan Oxycodone 10 mg three times daily ; tox screen today as expected. Also taking Lyrica, cymbalta, celebrex . Arthritis of knee 03/20/2017 Overview (09/13/2022): Added automatically from request for surgery [id number] Acquired hypothyroidism 07/22/2016 Prediabetes 04/13/2016 Recurrent major depressive disorder, in full rem ission 10/13/2015 Gastritis 06/10/2015 HTN (hypertension) 03/04/2014 Family history of malignant neoplasm of gastrointestinal tract 12/13/2013 Overactive bladder 09/20/2013 Spinal stenosis of lumbar re gion with neurogenic claudication 06/26/2013 Spondylolisthesis 06/26/2013 Anxiety 05/14/2013 Vitamin D deficiency 04/06/2010 Family history of diabetes mellitus 02/05/2010 Postmenopausal atrophic vaginitis 02/05/2010 Insomnia, unspecified 08/31/2007 Unspecified hypothyroidism 12/19/2006 Symptomatic menopausal or female climacteric sta merced Dyspnea History of amiodarone therapy Resolved Problems Problem Noted Date Diagnosed Date Resolved Date Visit for screening mammogram 12/19/2017 09/13/2022 Overview (07/22/2020): 12/08/17, 01/09/19 normal ; 07/21/20 normal wilmer Pathological fracture of fem ur due to osteoporosis 05/07/2017 04/18/2023 Overview (05/15/2017): Overview: Added automatically from request for surgery [id number] Closed supracondylar fracture of femur 05/06/2017 04/18/2023 Fracture of bone adjacent to prosthesis 05/06/2017 04/18/2023 High aspartate aminotransferase level 04/13/2016 09/13/2022 Pain management 10/01/2014 12/05/2017 Overview (10/01/2014): 10/01/14 Spinal stenosis; on Tramadol average 3 per day. Does not want to take percocet or other narcotics unless needed. Screening for malignant neop lasm of the cervix 06/27/2014 09/13/2022 Overview (06/27/2014): 05/2012 Spinal stenosis 05/14/2013 06/26/2013 Screening for osteoporosis 03/11/2011 0 09/13/2022 Overview (03/11/2011): 02/2010 normal dexascan Lipid screening 02/05/2010 09/13/2022 Special screening for malign ant neoplasms, colon 12/10/2008 09/13/2022 Overview (03/13/2019): 11/29/06 colonoscopy normal ; colonoscopy 12/2013 normal recheck 2018 due to family history brother colon cancer; 03/13/19 normal ; no longer need Follow up due to age Other screening mammogram 12/10/2008 Overview (07/23/2016): 05/01/09 normal ; 05/25/12; 06/06/13 ; normal ; had implants Mar 2014 ; had capsular contraction right breast so feels mammogram would be too painful. Will do self breast exams. 07/22/16 normal mammogram Overactive bladder 12/10/2008 4 Routine general medical exam ination at a health care facility 09/13/2022 Overview (12/10/2008): Last pap: 09/16/05-normal; 08/10 normal Last mammo: 10/03/05-normal Last colonoscopy: Last dexa: 08/24/04 normal Last lipids: 11/07/06 Cholesterol: 201 Triglycerides: 86 HDL: 65 LDL: 119 Glucose: 11/07/06 80 Duodenal ulcer, unspecified as acute or chronic, without hemorrhage, perforation, or obstruction 04/18/2023 Overview (04/24/2007): history of duodenal ulcer late Encounters Date Type Department Care Team Description 01/22/2025 Nurse Triage [facility] [address] [facility] [address] Stephanie Peguero RN Arm Pain/problem (Swelling redness laceration from monday) 01/10/2025 2:45 PM SHOE SALESMAN Office Visit [facility] [address] [facility] [place] [phone] Lanette Lee MD Medication Management (3 month follow up) 01/10/2025 Travel 12/27/2024 Telephone [facility] [address] [facility] [place] [phone] Lanette Lee MD Medication Management (HYDROmorphone 4 mg tablet) 12/24/2024 1:30 PM CDT Office Visit [facility] [address] [facility] [place] [phone] Iliana Sotelo NP Follow Up; Medication Management 12/24/2024 Travel 12/11/2024 Refill [facility] [address] [facility] [place] [phone] Lanette Lee MD Refill Request (HYDROmorphone 4 mg tablet /) 12/03/2024 Refill [facility] [address] [place] [phone] Lanette Lee MD Refill Request (Pregabalin) 11/22/2024 Refill [facility] [address] [place] [phone] Iliana Sotelo, ADRYAN Refill Request (Duloxetine) 11/14/2024 Orders Only [facility] [address] [place] [phone] Lanette Lee MD <No scans attached> 11/12/2024 2:31 PM CDT - 11/12/2024 11:59 PM CDT Hospital Encounter [facility] [address] [facility] [place] [address] Lanette Lee MD Osteopenia of both hips; Visit for screening mammogram 11/12/2024 Travel 11/04/2024 Orders Only [facility] [address] [place] [address] Lanette Lee MD <No scans attached> 10/29/2024 3:10 PM CDT Office Visit [facility] [address] [facility] [place] [phone] Lanette Lee MD Medicare ANNUAL (subsequent) Visit (Is not fasting) 10/29/2024 Travel from Last 3 Months Immunizations Immunization Administration Dates Next Due AMB Influenza, IIV3 (Age >=3 years)(Flu Clinic Only) 02/07/2009 COVID-19 VACCINE SPIKEVAX (M ODERNA 50MCG/0.5ML) 12YO+ PFS 06/25/2024 COVID-19 vaccine (Moderna 100mcg/0.5mL) PF, MDV 01/26/2021,05/22/2020,04/24/2020 COVID-19 vaccine (Cayo-Tech-Bio NTech 30mcg/0.3mL) 12YO+ BIVALENT PF, MDV 12/14/2021 COVID-19 vaccine (Cayo-Tech-Bio NTech 30mcg/0.3mL) 12YO+ SERG-SUCROSE PF, MDV 10/12/2021 HepA-HepB (Twinrix) 11/27/2024 Influenza Virus, Unspecified 11/18/2016,01/02/20 15 Influenza, High-dose Inactivated 025,11/15/2023,12/17/2020,11/18,01/01/2015,12/31/2013 Influenza, High-dose Quadriv alent Inactivated 11/26/2019 Influenza, IIV3 (Age 6-35 mos) 02/07/2009 Influenza, IIV3 (Age >=3 years) 02/05/2010,01/04 Influenza, Inactivated AIIV4 (Age 65+ Years) Preserv Free 11/23/2022,11/10/2021 Influenza, Inactivated IIV3 (Age 65+ Years) Preserv Free 11/28/2018,12/05/2017,11/18/2016 Pneumococcal Conj 20-valent (Prevnar 20) 11/15/2023 Pneumococcal Poly,23-Valent (Pneumovax) 03/11/2011 Pneumococcal conj 13-Valent (Prevnar 13) 07/23/2015 RSV, Recombinant ADJ Reconst ituted (Arexvy 120MCG/0.5mL) 11/15/2023 Td (Age >=7 Years) 07/04/2002 Tdap 03/30/2022,03/11/2011 Zoster (Shingrix-RZV, recombinant) 02/14/2020,,11/19/2019 Family History Medical History Relation Name Comments Cancer Brother 2 Ajay leukemia Cancer-colon Brother 2 Ajay Glaucoma Father Heart Disease Father ID age 90 Hypertension Father Diabetes Maternal Grandmother Hypertension Mother Thyroid Disease Mother hypothyroidi sm Allergies Sister 1 Corinne Diabetes Sister 1 Corinne type 1 Thyroid Disease Sister 1 Corinne hypothyroidi sm Psychiatric illness Sister 2 depressi on Cancer-breast No Family History Relation Name Status Comments Brother 1 (Age 80) heart dise ase Brother 2 Ajay Father Maternal Grandmother Mother (Age 100) Sister 1 Corinne Sister 2 Social History Tobacco Use Types Packs/Day Years Used Date Smoking Tobacco: Former Cigarettes 0.5 4 0 08/04/1960 - 08/04/1964 Passive Smoke Exposure: Past Smokeless Tobacco: Never Tobacco Cessation:Counseling Given: Not Answered Comments:smoked as teenager, quit when 19 years old Alcohol Use Standard Drinks/Week Comments Not Currently 0 (1 standard drink = 0.6 oz pur e alcohol) PHQ-2 Answer Date Recorded PHQ-2 TOTAL SCORE 0 12/24/2024 Social Connections Answer Date Recorded Do you often feel lonely or isolated from those around you? 0 01/10/2025 Alcohol Use Answer Date Recorded How often do you have a drink containing alcohol ? 1 01/10/2025 How many drinks containing a lcohol do you have on a typical day when you are drinking? 0 01/10/2025 How often do you have five or more drinks on one occasion? 0 01/10/2025 Financial Resource Strain Answer Date R ecorded Difficulty of Paying Living Expenses 3 01/10/2025 Difficulty of Paying Living Expenses Not on file 01/10/2025 Food Insecurity Answer Date Recorded Do you worry your food will run out before you are able to buy more? 1 01/10/2025 Transportation Needs Answer Date Record ed Does lack of transportation keep you from medica l appointments? 1 01/10/2025 Does lack of transportation keep you from work, meetings or getting things that you need? 1 01/10/2025 Housing Stability Answer Date Recorded What is your housing situation today? 1 01/10/2025 Utilities Answer Date Recorded Do you have trouble paying f or utilities (for example, heat, electricity, water, phone)? 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 Not on file Not on file Not on file Obstetrics History Para Term AB IAB SAB Ectopic Multiple Livin g Live Births 6 4 4 2 Date Outcome GA Total Labor Labor/2nd/3rd Weight Sex Type Anes PTL Any A1 A5 Name Clin SAB SAB SAB SAB Comments 1 adopted son also Last Filed Vital Signs Vital Sign Reading Time Taken Comments Blood Pressure 124/66 01/10/2025 2:56 PM SHOE SALESMAN Pulse 72 01/10/2025 2:56 PM SHOE SALESMAN Temperature 36.8 C (98.2 F) 09/29/2023 8:45 AM CDT Respiratory Rate 16 09/29/2023 8:45 AM CDT Oxygen Saturation 99% 01/10/2025 2:56 PM SHOE SALESMAN Inhaled Oxygen Concentration - - Weight 64.7 kg (142 lb 11.2 oz) 01/10/2025 2:56 PM SHOE SALESMAN Height 158.8 cm (5' 2.5) 10/29/2024 3:30 PM CDT Body Mass Index 25.68 10/29/2024 3:30 PM CDT Plan of Treatment Upcoming Encounters Date Type Department Care Team (Late st Contact Info) Description 04/11/2025 2:45 PM SHOE SALESMAN Office Visit [facility] [address] [facility] [place] [phone] Lanette Lee MD [address] [facility] [place] [phone] 06/10/2025 2:30 PM CDT Office Visit [facility] [address] [facility] [place] [phone] Iliana Sotelo NP [address] [facility] [place] [phone] Health Maintenance Due Date Last Done Comments Hepatitis B series for 19+ ( 2 of 3 - Hep B Twinrix 3-dose series) 12/25/2024 11/27/2024 BMI (ht and wt on same day) for age 18+ 10/29/2025 10/29/2024, 12/05/2023, 09/05/2023, Additional history exists Medicare Wellness for age 65+ 10/30/2025, 09/05/2023, 07/12/2022, Additional history exists Depression screening for age 12+ 12/24/2025 12/24/2024, 10/29/2024, 07/09/2024, Additional history exists Tetanus booster 03/30/2032 03/30/2022, 08/2011, 07/04/2002 Hepatitis C screening for ag e 18-79 Completed 09/02/2013 Zoster (shingles) series for age 50+ Completed 02/14/2020, 11/26/2019, 11/19/2019 Pneumococcal series for age 50+ Completed 11/15/2023, 07/23/2015, 03/11/2011 RSV vaccine for adults or Completed 11/15/2023 DEXA/DXA scan for age 65+ Completed 2024, 01/20/2021, 11/14/2017, Additional history exists Influenza Vaccine Completed 11/27/2024, , 11/23/2022, Additional history exists Medical Devices Implanted Type Area Vpk Teacher Device Identifier Shelf Expiration Date Model / Serial / Lot Doug Lmbr 50x5.5mm Tsrh 3d Cvd Titnm - [id number] Implanted:Qty: 1 on 04/26/2022 by Clifton Leggett MD at [facility] Spine Implants N/A: Spine Medtronic Spine/Ortho [id number] / / Toe 2 Ritter Flex Hinge Grommets Sm Stem - [id number] Implanted:Qty: 1 on 11/30/2018 by Jimmy Nassar DPM at [facility] Left: Toe [employer] Ritter flexspan hinge toe 11/26/2025 [id number] / / [id number] Cnnctr Lmbr 5.5x5.5mm Doug Connect Variable Titnm - [id number] Implanted:Qty: 1 on 04/26/2022 by Clifton Leggett MD at [facility] N/A: Spine Medtronic Spine/Ortho [id number] / / Set Screw Lmbr Std Doug Connection Titnm - [id number] Implanted:Qty: 2 on 04/26/2022 by Clifton Leggett MD at [facility] N/A: Spine Medtronic Spine/Ortho [id number] / / [id number] bone 1-10mm 15cc Medtronic Chips Canclls Freeze Dried Implanted:Qty: 1 on 04/26/2022 by Clifton Leggett MD at [facility] N/A: Spine Medtronic Spine/Ortho 04/01/2026 [id number] / [id number] / Spacer Lmbr 7x22mm Capstone Tlif Peek - [id number] Implanted:Qty: 1 on 04/26/2022 by Clifton Leggett MD at [facility] N/A: Spine Medtronic Spine/Ortho 11/19/2028 [id number] / / [id number] Set Screw Lmbr Tsrh 3dx - [id number] Implanted:Qty: 3 on 04/26/2022 by Clifton Leggett MD at [facility] N/A: Spine Medtronic Spine/Ortho [id number] / / Cnnctr Lmbr Sm Tsrh 3dx Offsettitnm - [id number] Implanted:Qty: 2 on 04/26/2022 by Clifton Leggett MD at [facility] N/A: Spine Medtronic Spine/Ortho [id number] / / Cnnctr Lmbr Lg Tsrh 3dx Offsettitnm - [id number] Implanted:Qty: 1 on 04/26/2022 by Clifton Leggett MD at [facility] N/A: Spine Medtronic Spine/Ortho [id number] / / Doug Lmbr 35x5.5mm Tsrh 3d Cvd Titnm - [id number] Implanted:Qty: 1 on 04/26/2022 by Clifton Leggett MD at [facility] N/A: Spine Medtronic Spine/Ortho [id number] / / Screw Lmbr Post 6.5x40mm Tsrh 3dx Og Thin Va - [id number] Implanted:Qty: 2 on 04/26/2022 by Clifton Leggett MD at [facility] N/A: Spine Medtronic Spine/Ortho [id number] / / Screw Lmbr Post 6.5x45mm Tsrh 3dx Og Thin Va - [id number] Implanted:Qty: 1 on 04/26/2022 by Clifton Leggett MD at [facility] N/A: Spine Medtronic Spine/Ortho [id number] / / Cmnt Bone 40g Simplex P Non Atb Mv - [id number] Implanted:Qty: 2 on 09/28/2023 by Jose Luis Rodriguez MD at [facility] Left: Shoulder [employer] 04/05/2025 [id number] / / [id number] Glenoid Sm 15 Deg Lt Aequalis Perform+ Cortiloc - [id number] Implanted:Qty: 1 on 09/28/2023 by Jose Luis Rodriguez MD at [facility] Left: Shoulder [employer] 12/09/2025 [id number] / [id number] / Stem Hum Sz 1b Ascend Flex Lng - [id number] Implanted:Qty: 1 on 09/28/2023 by Jose Luis Rodriguez MD at [facility] Left: Shoulder [employer] 06/28/2028 [id number] / [id number] / Head Hum [id number] Ascend Flex Low Offset - [id number] Implanted:Qty: 1 on 09/28/2023 by Jose Luis Rodriguez MD at [facility] Left: Shoulder [employer] 02/22/2027 [id number] / [id number] / Procedures Procedure Name Priority Date/Time Associated Diagnosis Comments CBC WITH AUTO DIFFERENTIAL Routine 01/10/2025 4:08 PM SHOE SALESMAN Petechiae or ecchymoses CBC WITH AUTO DIFFERENTIAL Routine 01/10/2025 4:08 PM SHOE SALESMAN Petechiae or ecchymoses VITAMIN D 25 (DEFICIENCY) Routine 01/10/2025 4:08 PM SHOE SALESMAN Osteopenia of multiple sites TSH WITH REFLEX Routine 01/10/2025 4:08 PM SHOE SALESMAN Acquired hypothyroidism XR DXA BONE DENSITY 2 SITES AXIAL AND 1 SITE PERIPHERAL Routine 11/12/2024 3:01 PM CDT Osteopenia of both hips XR MAMMO WILMER BILAT SCREEN IMPLANT Routine 11/12/2024 2:56 PM CDT Visit for screening mammogram COMPLIANCE DRUG ANALYSIS Routine 10/29/2024 4:39 PM CDT Pain management contract agreement Therapeutic drug monitoring T4,FREE Routine 10/29/2024 4:14 PM CDT Acquired hypothyroidism HEMOGLOBIN A1C Routine 10/29/2024 4:14 PM CDT Prediabetes TSH WITH REFLEX Routine 10/29/2024 4:14 PM CDT Acquired hypothyroidism LIPID PANEL W REFLEX MEASURED LDL Routine 10/29/2024 4:14 PM CDT Hypercholesterolemia BASIC METABOLIC PANEL Routine 10/29/2024 4:14 PM CDT HTN (hypertension) ANTI HCV Routine 09/02/2013 10:52 AM CDT Need for hepatitis C screening test from Last 3 Months or Most Recently Relevant to Health Maintenance Results * CBC WITH AUTO DIFFERENTIAL (01/10/2025 4:08 PM SHOE SALESMAN) WHITE BLOOD CELL COUNT TNP Thousand/u L 01/10/2025 4:31 PM SHOE SALESMAN [facility] Comment: TEST NOT PERFORMED Specimen received clotted. Blood BLOOD SPECIMEN / Unknown [facility] / Unknown 01/10/2025 4:08 PM SHOE SALESMAN 01/10/2025 4:08 PM SHOE SALESMAN Lanette Lee MD HEMATOLOGY Final Result [facility] [address] [place] [address], [place] [phone] [facility] [address] [place] [address], [place] [phone] * TSH WITH REFLEX (01/10/2025 4:08 PM SHOE SALESMAN) Only the most recent of2 resultswithin the time period is included. TSH W/REFLEX TO FT4 1.89 0.40 - 4.50 mIU/L 01/11/2025 5:19 AM SHOE SALESMAN [facility] Blood BLOOD SPECIMEN / Unknown [facility] / Unknown 01/10/2025 4:08 PM SHOE SALESMAN 01/10/2025 4:08 PM SHOE SALESMAN us Lanette Lee MD CHEMISTRY Final Result Performing Organization Address [facility] Co de Phone Number [facility] [address] [address], * VITAMIN D 25 (DEFICIENCY) (01/10/2025 4:08 PM SHOE SALESMAN) VITAMIN D,25-OH,TOTAL,IA 62 30 - 100 ng/mL 01/11/2025 5:19 AM SHOE SALESMAN [email or web address] Comment: Vitamin D Status 25-OH Vitamin D: Deficiency: <20 ng/mL Insufficiency: 20 - 29 ng/mL Optimal: > or = 30 ng/mL For 25-OH Vitamin D testing on patients on D2-supplementation and patients for whom quantitation of D2 and D3 fractions is required, the QuestAssureD(TM) 25-OH VIT D, (D2,D3), LC/MS/MS is recommended: order code 02122 (patients >2yrs). See Note 1 Note 1 For additional information, please refer to http://education.Balandras/faq/CVI771 (This link is being provided for informational/ educational purposes only.) Blood BLOOD SPECIMEN / Unknown [facility] / Unknown 01/10/2025 4:08 PM SHOE SALESMAN 01/10/2025 4:08 PM SHOE SALESMAN us Lanette Lee MD SEND OUTS Final Result Performing Organization Address [facility] Co de Phone Number [facility] [address] [address], [place] [phone] * XR DXA BONE DENSITY 2 SITES AXIAL AND 1 SITE PERIPHERAL (11/12/2024 3:01 PM CDT) Anatomical Region Laterality Modality LUMBAR SPINE Digital Radiogra phy 11/12/2024 3:01 PM CDT Impressions 11/14/2024 4:03 PM CDT Low bone density (OSTEOPENIA). T-score meets the WHO criteria for low bone density (osteopenia) at one or more measured sites. The risk of osteoporotic fracture increases approximately two-fold for each standard deviation decrease in T-score. Narrative 11/14/2024 4:03 PM CDT For Patients: As a result of the Cures Act, medical imaging exams and procedure reports are released immediately into your electronic medical record. You may view this report before your referring provider. If you have questions, please contact your health care provider. EXAM: XR DXA BONE DENSITY 2 SITES AXIAL AND 1 SITE PERIPHERAL LOCATION: [facility] DATE: 11/12/2024 INDICATION: BMD screening, follow-up exam. DEMOGRAPHICS: Age- 79 years. Gender- Female. Menopausal status- Postmenopausal. COMPARISON: 01/20/2021. TECHNIQUE: Dual-energy x-ray absorptiometry (DXA) performed with routine technique. Forearm DXA performed. FINDINGS: DXA RESULTS -Lumbar Spine: L1-L4 (L3, L4): BMD: 1.448 g/cm2. T-score: 2.4. Z-score: 4.2. -RIGHT Hip Total: BMD: 1.179 g/cm2. T-score: 1.4. Z-score: 3.3. -RIGHT Hip Femoral neck: BMD: 0.820 g/cm2. T-score: -1.6. Z-score: 0.5. -LEFT Hip Total: BMD: 0.983 g/cm2. T-score: -0.2. Z-score: 1.7. -LEFT Hip Femoral neck: BMD: 0.949 g/cm2. T-score: -0.6. Z-score: 1.5. -LEFT Radius 33%: BMD: 0.770 g/cm2. T-score: -1.2. Z-score: 1.4. WHO T-SCORE CRITERIA -Normal: T-score at or above -1 SD -Osteopenia: T-score between -1 and -2.5 SD -Osteoporosis: T-score at or below -2.5 SD The World Health Organization (WHO) criteria is applicable to perimenopausal females, postmenopausal females, and men aged 50 years or older. INTERVAL CHANGE -There has been a 33.2% increase in lumbar spine BMD. -There has been a 3.7% decrease in bilateral hip BMD. -There has been a 4.1% decrease in the left radius 33% BMD. FRACTURE RISK -FRAX Results: The 10 year probability of major osteoporotic fracture is 20.0%, and of hip fracture is 4.5%, based on right femoral neck BMD. RECOMMENDATIONS: The current National Osteoporosis Foundation Guide recommends that FDA-approved medical therapies be considered if the 10 year probability of major osteoporotic fracture risk is greater than or equal to 20%, or if the hip fracture risk is greater than or equal to 3%. Please note all treatment decisions require clinical judgement and consideration of individual patient factors, including patient preferences, comorbidities, previous drug use, risk factors not captured in the FRAX model (e.g. frailty, falls, vitamin D deficiency, increased bone turnover, interval significant decline in bone density) and possible under or over-estimation of fracture risk by FRAX. Procedure Note Zane Romo PA - 11/14/2024 For Patients: As a result of the Cures Act, medical imagingexams and procedure reports are released immediately into your electronicmedical record. You may view this report before your referring provider.If you have questions, please contact your health care provider. EXAM: XR DXA BONE DENSITY 2 SITES AXIAL AND 1 SITE PERIPHERAL LOCATION: [facility] DATE: 11/12/2024 INDICATION: BMD screening, follow-up exam. DEMOGRAPHICS: Age- 79 years. Gender- Female. Menopausal status-Postmenopausal. COMPARISON: 01/20/2021. TECHNIQUE: Dual-energy x-ray absorptiometry (DXA) performed with routinetechnique. Forearm DXA performed. FINDINGS: DXA RESULTS -Lumbar Spine: L1-L4 (L3, L4): BMD: 1.448 g/cm2. T-score: 2.4. Z-score:4.2. -RIGHT Hip Total: BMD: 1.179 g/cm2. T-score: 1.4. Z-score: 3.3. -RIGHT Hip Femoral neck: BMD: 0.820 g/cm2. T-score: -1.6. Z-score: 0.5. -LEFT Hip Total: BMD: 0.983 g/cm2. T-score: -0.2. Z-score: 1.7. -LEFT Hip Femoral neck: BMD: 0.949 g/cm2. T-score: -0.6. Z-score: 1.5. -LEFT Radius 33%: BMD: 0.770 g/cm2. T-score: -1.2. Z-score: 1.4. WHO T-SCORE CRITERIA -Normal: T-score at or above -1 SD -Osteopenia: T-score between -1 and -2.5 SD -Osteoporosis: T-score at or below -2.5 SD The World Health Organization (WHO) criteria is applicable toperimenopausal females, postmenopausal females, and men aged 50 years orolder. INTERVAL CHANGE -There has been a 33.2% increase in lumbar spine BMD. -There has been a 3.7% decrease in bilateral hip BMD. -There has been a 4.1% decrease in the left radius 33% BMD. FRACTURE RISK -FRAX Results: The 10 year probability of major osteoporotic fracture is20.0%, and of hip fracture is 4.5%, based on right femoral neck BMD. RECOMMENDATIONS: The current National Osteoporosis Foundation Guiderecommends that FDA-approved medical therapies be considered if the 10year probability of major osteoporotic fracture risk is greater than orequal to 20%, or if the hip fracture risk is greater than or equal to 3%.Please note all treatment decisions require clinical judgement andconsideration of individual patient factors, including patientpreferences, comorbidities, previous drug use, risk factors not capturedin the FRAX model (e.g. frailty, falls, vitamin D deficiency, increasedbone turnover, interval significant decline in bone density) and possibleunder or over- estimation of fracture risk by FRAX. IMPRESSION: Low bone density (OSTEOPENIA). T-score meets the WHO criteria for low bonedensity (osteopenia) at one or more measured sites. The risk ofosteoporotic fracture increases approximately two-fold for each standarddeviation decrease in T-score. Lanette Lee MD DEXA Final Result * XR MAMMO WILMER BILAT SCREEN IMPLANT (11/12/2024 2:56 PM CDT) Anatomical Region Laterality Modality BREASTS, Breast Left, Breast Right Bilateral Mammography Impressions 11/13/2024 2:29 PM CDT There is no radiographic evidence for malignancy. Recommend annual mammograms. MAMMOGRAM ASSESSMENT: ACR 2 Benign PATIENTS: You will also receive a letter with your examination results in an easy to read format. If you have questions about your results, please contact your referring provider. Narrative 11/13/2024 2:29 PM CDT For Patients: As a result of the Cures Act, medical imaging exams and procedure reports are released immediately into your electronic medical record. You may view this report before your referring provider. If you have questions, please contact your health care provider. XR MAMMO WILMER BILAT SCREEN IMPLANT [[id number]] CLINICAL HISTORY: This is an asymptomatic 79 y.o. patient. INDICATION FOR EXAM: Mammogram Screening. TECHNIQUE: CC and MLO views were obtained. Implant displacement views were obtained. This study was evaluated with the assistance of Computer-Aided Detection. Breast Tomosynthesis was used in interpretation. COMPARISON FILMS: Yes 04/12/22 [facility] 07/21/20 [facility] FINDINGS: There are scattered areas of fibroglandular density. No suspicious masses or microcalcifications. There are breast implant(s) present..,. Lanette Lee MD MAMMO Final Result * (ABNORMAL) Compliance Drug Analysis [[id number]] (10/29/2024 4:39 PM CDT) 6-MONOACETYL MORPHINE NEG NEG ng/mL 11/05/2024 9:45 AM T [facility] AMPHETAMINE URINE NEG <=500 ng/mL 11/05/2024 9:45 AM T [facility] BARBITURATE URINE NEG <=200 ng/mL 11/05/2024 9:45 AM T [facility] BENZODIAZEPINE URINE POS(A) <=100 ng/mL 11/05/2024 9:45 AM T [facility] BUPRENORPHRINE URINE NEG <=5 ng/mL 04/2024 9:45 AM [facility] COCAINE METAB URINE NEG <=300 ng/mL 11/05/2024 9:45 AM [facility] ETHYLGLUCURONIDE URINE NEG <=250 ng/mL 11/05/2024 9:45 AM [facility] FENTANYL URINE NEG <=5 ng/mL 11/05/2024 9:45 AM [facility] METHADONE URINE NEG <=300 ng/mL 11/05/2024 9:45 AM [facility] OPIATES URINE POS(A) <=300 ng/mL 11/05/2024 9:45 AM [facility] OXYCODONE URINE NEG <=100 ng/mL 11/05/2024 9:45 AM [facility] PROPOXYPHENE URINE NEG <=300 ng/mL 11/05/2024 9:45 AM [facility] THC 50 URINE NEG <=50 ng/mL 11/05/2024 9:45 AM [facility] TRAMADOL NEG <=200 ng/mL 11/05/2024 9:45 AM [facility] PH URINE 6.3 5.0 - 7.0 11/05/2024 9:45 AM [facility] CREAT UR 47 >=20 mg/dL 11/05/2024 9:45 AM [facility] MASS SPECTROMETRY See Below 025 9:45 AM [facility] Comment:Diphenhydramine, Eph edrine/Pseudoephedrine, Furosemide and Hydromorphone present. Urine URINE SPECIMEN / Unknown Non-Blood / Unknown 10/29/2024 4:39 PM T 10/29/2024 4:39 PM [facility] - 11/05/2024 9:45 AM [facility] Current Outpatient Medications: acetaminophen (TYLENOL EXTRA STRGTH) 500 mg tablet, Take 1 Tablet (500 mg) by mouth four times daily. atenoloL (TENORMIN) 50 mg tablet, Take 1 Tablet (50 mg) by mouth two times daily. cholecalciferol, Vitamin D3, 2,000 unit tablet, Take 1 tablet by mouth once daily. 5000 units taken during winter months DULoxetine 60 mg Delayed-release capsule, Take 1 Capsule (60 mg) by mouth two times daily. furosemide (LASIX) 20 mg tablet, TAKE 2 TABLETS BY MOUTH IN THE MORNING AND 1 in afternoon [START ON 11/24/2024] HYDROmorphone 4 mg tablet, Take 1 Tablet (4 mg) by mouth 4 times daily if needed (chronic pain). [START ON 10/25/2024] HYDROmorphone 4 mg tablet, Take 1 Tablet (4 mg) by mouth 4 times daily if needed (chronic pain). HYDROmorphone 4 mg tablet, Take 1 Tablet (4 mg) by mouth 4 times daily if needed (chronic pain). levothyroxine (SYNTHROID) 125 mcg tablet, Take 1 Tablet (125 mcg) by mouth before breakfast. melatonin 10 mg tab, Take 1 Tablet (10 mg) by mouth once daily in the evening. Take 1-2 hours prior to going to bed MULTIVITAMIN (MULTI-DAY ORAL), Take 1 tablet by mouth once daily. naloxone (Narcan) 4 mg/actuation nasal spray, Additional doses may be given every 2 to 3 minutes until emergency medical assistance arrives.ADMINISTER A SINGLE SPRAY OF NARCAN IN ONE NOSTRIL. REPEAT AFTER 3 MINUTES IF NO OR MINIMAL RESPONSE. omega 1-qif-den-fish oil 100-160-1,000 mg cap, Take 1 Capsule by mouth once daily. pantoprazole (PROTONIX) 20 mg tablet, Take 1 Tablet (20 mg) by mouth once daily if needed for GI Upset. polyethylene glycol (MIRALAX; GLYCOLAX) 17 g packet, Mix 17 g in liquid then take by mouth once daily. May also mix 17 g (1 Packet) once daily if needed for Constipation. pregabalin (LYRICA) 150 mg capsule, Take 1 Capsule (150 mg) by mouth two times daily. temazepam 15 mg capsule, Take 1 Capsule (15 mg) by mouth at bedtime if needed, may repeat once for Sleep. triamterene-hydrochlorothiazide (37.5-25 mg) (MAXZIDE-25) 37.5-25 mg tablet, Take 1 Tablet by mouth once daily in the morning. valACYclovir (VALTREX) 500 mg tablet, Take 1 Tablet (500 mg) by mouth once daily. No current facility-administered medications for this visit. As of 09/25/2024 Release to patient->Immediate Lanette Lee MD URINE Final Result [facility] [address] [place] [address], [place] * HEMOGLOBIN A1C (10/29/2024 4:14 PM CDT) HEMOGLOBIN A1C 5.5 <5.7 % 10/30/2024 3:20 AM CDT [email or web address] Comment: For the purpose of screening for the presence of diabetes: <5.7% Consistent with the absence of diabetes 5.7-6.4% Consistent with increased risk for diabetes (prediabetes) > or =6.5% Consistent with diabetes This assay result is consistent with a decreased risk of diabetes. Currently, no consensus exists regarding use of hemoglobin A1c for diagnosis of diabetes in children. According to [place] Diabetes Association (ADA) guidelines, hemoglobin A1c <7.0% represents optimal control in non- diabetic patients. Different metrics may apply to specific patient populations. Standards of Medical Care in Diabetes(ADA). Blood BLOOD SPECIMEN / Unknown [facility] / Unknown 10/29/2024 4:14 PM CDT 10/29/2024 4:18 PM CDT Lanette Lee MD CHEMISTRY Final Result [facility] [address] [address], [place] [phone] * (ABNORMAL) LIPID PANEL W REFLEX MEASURED LDL (10/29/2024 4:14 PM CDT) CHOLESTEROL, TOTAL 193 <200 mg/dL 10/30/2024 4:18 AM CDT [facility] TRIGLYCERIDES 174(H) <150 mg/dL 10/30/2024 4:18 AM CDT [facility] HDL CHOLESTEROL 51 > OR = 50 mg/dL 10/30/2024 4:18 AM CDT [facility] NON HDL CHOLESTEROL 142(H) <130 mg/dL (calc) 10/30/2024 4:18 AM CDT [email or web address] Comment: For patients with diabetes plus 1 major ASCVD risk factor, treating to a non-HDL-C goal of <100 mg/dL (LDL-C of <70 mg/dL) is considered a therapeutic option. CHOL/HDLC RATIO 3.8 <5.0 (calc) 10/30/2024 4:18 AM CDT [facility] LDL-CHOLESTEROL 113(H) mg/dL (calc) 10/30/2024 4:18 AM CDT [facility] Comment: Reference range: <100 Desirable range <100 mg/dL for primary prevention; <70 mg/dL for patients with CHD or diabetic patients with > or = 2 CHD risk factors. LDL-C is now calculated using the Lara calculation, which is a validated novel method providing better accuracy than the Friedewald equation in the estimation of LDL-C. Erick PETERSEN et al. RAY. 2013;310(19): 3788-2236 (http://education.Balandras/faq/EAN544) Blood BLOOD SPECIMEN / Unknown [facility] / Unknown 10/29/2024 4:14 PM CDT 10/29/2024 4:18 PM CDT us Lanette Lee MD CHEMISTRY Final Result Performing Organization Address City/[facility]/ZIP Co de Phone Number [email or web address] [address] [address], * T4,FREE (10/29/2024 4:14 PM CDT) T4, FREE 1.3 0.8 - 1.8 ng/dL 10/30/2024 9:14 AM CDT [email or web address] Blood BLOOD SPECIMEN / Unknown [facility] / Unknown 10/29/2024 4:14 PM CDT 10/29/2024 4:18 PM CDT us Lanette Lee MD CHEMISTRY Final Result Performing Organization Address [facility]/ZIP Co de Phone Number [email or web address] [address] [address], [place] [phone] * (ABNORMAL) BASIC METABOLIC PANEL (10/29/2024 4:14 PM CDT) SODIUM 139 135 - 146 mmol/L 10/30/2024 4:18 AM CDT [facility] POTASSIUM 4.0 3.5 - 5.3 mmol/L 10/30/2024 4:18 AM CDT [facility] CARBON DIOXIDE 31 20 - 32 mmol/L 10/30/2024 4:18 AM CDT [facility] GLUCOSE 111(H) 65 - 99 mg/dL 10/30/2024 4:18 AM CDT [facility] Comment: Fasting reference interval For someone without known diabetes, a glucose value between 100 and 125 mg/dL is consistent with prediabetes and should be confirmed with a follow-up test. CALCIUM 9.0 8.6 - 10.4 mg/dL 10/30/2024 4:18 AM CDT [facility] CREATININE 0.89 0.60 - 1.00 mg/dL 10/30/2024 4:18 AM CDT [facility] BUN/CREATININE RATIO 38(H) 6 - 22 (calc) 10/30/2024 4:18 AM CDT [facility] EGFR 66 > OR = 60 mL/min/1.7 3m2 10/30/2024 4:18 AM CDT [facility] UREA NITROGEN (BUN) 34(H) 7 - 25 mg/dL 10/30/2024 4:18 AM CDT [facility] ELECTROLYTE BALANCE 8 7 - 17 mmol/L (calc) 10/30/2024 4:18 AM CDT [facility] CHLORIDE 100 98 - 110 mmol/L 10/30/2024 4:18 AM CDT [facility] Blood BLOOD SPECIMEN / Unknown [facility] / Unknown 10/29/2024 4:14 PM CDT 10/29/2024 4:18 PM CDT us Lanette Lee MD CHEMISTRY Final Result [facility] [address] [place] [address], * ANTI HCV [[id number]] (09/02/2013 10:52 AM CDT) Pathologist [facility] HEPATITIS C ANTIBODY Non-Reacti ve Non-Reacti ve 09/02/2013 6:53 PM CDT [facility] Blood specimen (specimen) BLOOD SPECIMEN / Unknown [facility] / Unknown 09/02/2013 10:52 AM CDT 09/02/2013 10:53 AM CDT Narrative [facility] - 09/02/2013 6:53 PM CDT Antibodies to HCV not detected; does not exclude the possibility of exposure to HCV. Lanette Lee MD SEND OUTS Final Result [facility] [address] [place] [address], [place] from Last 3 Months or Most Recently Relevant to Health Maintenance Insurance [employer] PRIME VUELOGIC MR PB ONLY MEDICARE PART B HB ONLY MEDICA PRIME SOLUTION HB MEDICARE PART A HB ONLY MEDICARE PART A HB ONLY MEDICARE PART B HB ONLY [employer] PRIME SOLUTION HB [place] [id number] Advance Directives Documents on File Type Date Recorded Patient Head Packager Ceci RIBEIRO 05/19/2022 05/19/2022 * Full Code (Latest Code Status on File) Date Activated Date Inactivated Comments 09/28/2023 9:36 AM 09/29/2023 1:28 PM Question Answer Comments Code Status Discussion: Unable to Assess Preferences, Provider to review later * Full Code Date Activated Date Inactivated Comments 04/26/2022 6:54 PM 05/04/2022 4:12 PM Question Answer Comments Code Status Discussion: Reviewed Preferences * Full Code Date Activated Date Inactivated Comments 03/13/2019 9:56 AM 03/13/2019 2:41 PM Question Answer Comments Code Status Discussion: Discussed * Full Code Date Activated Date Inactivated Comments 11/30/2018 7:03 AM 11/30/2018 1:17 PM Question Answer Comments Code Status Discussion: Discussed * Full Code Date Activated Date Inactivated Comments 10/13/2015 12:06 PM 10/16/2015 5:05 PM Question Answer Comments Code Status Discussion: Per Existing Order Care Teams [facility] Associate Professor Relationship Specialty Start Date End Date Lanette Lee MD [address] [place] [id number] PCP - General Family Practice 03/30/18 Neville Garcia MD Surgery - Orthopedics 11/05/13 Petey Charles [facility] [address] [facility] [place] [address] Cardiology Cardiovascular Disease 10/22/19
--- NOTE | 2025-01-22 13:40 | ED.GENADULT ---
HPI - General Adult General Time Seen by Provider: 13:40 Date Seen: 01/22/25 Chief complaint: Skin/Abscess/Foreign Body Stated complaint: R arm infection Time Seen by Provider: 01/22/25 13:22 Source: patient Mode of arrival: ambulatory Limitations: no limitations History of Present Illness HPI narrative: Taylor is a 79-year-old female with history of hypertension, hypothyroidism presents emergency department via private car and self with a possible right arm infection. Patient states 2 days ago she struck her right elbow onto a table corner, at that time did sustain a superficial laceration. Since then the been cleaning it with soap and water. Patient noticed increased redness surrounding the right elbow, she is right-hand dominant, last night there was more swelling going down her right arm with some redness. Patient is not any fevers or chills, patient has full range of motion of the right elbow. She denies any numbness tingling to her upper extremity. Patient has no history of any MRSA. Patient has had cellulitis in the past. Related Data Home Medications ?Medication ?Instructions ?Recorded ?Confirmed atenolol 50 mg tablet 50 mg PO BID 11/17/22 01/22/25 furosemide 20 mg tablet 20 mg PO QAM 11/17/22 01/22/25 hydromorphone 4 mg tablet 4 mg PO Q3-4H PRN pain 11/17/22 01/22/25 levothyroxine 125 mcg tablet 125 mcg PO QAM 11/17/22 01/22/25 temazepam 15 mg capsule mg PO 11/17/22 pregabalin 150 mg capsule 150 mg PO 3XD 01/28/23 01/22/25 triamterene 37.5 1 tab PO QAM 01/28/23 01/22/25 mg-hydrochlorothiazide 25 mg tablet valacyclovir 1 gram tablet 1,000 mg PO 3XD 01/28/23 valacyclovir 500 mg tablet 500 mg PO DAILY 01/28/23 01/28/23 duloxetine 60 mg capsule,delayed 120 mg PO DAILY 01/22/25 01/22/25 release Previous Rx's ?Medication ?Instructions ?Recorded pantoprazole 20 mg tablet,delayed 20 mg PO DAILY #30 tabs 01/28/23 release (Protonix) cefadroxil 500 mg capsule 500 mg PO BID 7 days #14 caps 01/22/25 Allergies Allergy/AdvReac Type Severity Reaction Status Date / Time desvenlafaxine Allergy Unknown Verified 01/28/23 16:13 mirtazapine Allergy Unknown Verified 01/28/23 16:13 NSAIDS (Non-Steroidal Allergy Unknown Verified 01/28/23 16:13 Anti-Inflamma (NSAIDS (Non-Steroidal Anti-Inflammatory Drug)) olanzapine Allergy Unknown Verified 01/28/23 16:13 quentiapine Allergy Unknown Uncoded 05/13/22 13:50 Remeron Allergy Unknown Uncoded 05/13/22 13:50 Seroquel Allergy Unknown Uncoded 05/13/22 13:50 Review of Systems Status of ROS: Reports: 10 or more systems reviewed and unremarkable except as noted in History and below PFSH PFSH Social History Smoking Status: Former smoker Do you use any of these nicotine containing products: None Second hand tobacco smoke exposure: No How often do you have a drink containing alcohol: never AUDIT-C Alcohol total score: 0 Non-prescribed substance use: denies use Exam Narrative: Exam Narrative: General: No obvious distress sitting comfortably HEENT: Pupils equal round reactive to light Neck: Supple Heart: Normal sinus rhythm Lungs: Clear Abdomen: Soft nontender Muscle skeletal: Right upper extremity: There is a 1.5 cm superficial laceration to the olecranon, tender to palpation, there is surrounding erythema that is warm, erythema extends the mid forearm with associated swelling, patient can actively flex and extend that right elbow, no drainage from the laceration site, CMS intact. Neuro: GCS 15 Const: Vital Signs, click to edit/add: Vital Signs - 24 hr 01/22/25 13:46 Temperature 98.1 F Pulse Rate [Pulse Oximeter] 85 Respiratory Rate 20 Blood Pressure [Le ft Upper Arm] 181/80 H Pulse Oximetry 98 Oxygen Delivery Me thod Room Air Course Course ED Course: 2:30 PM: aidet performed, vitals show mildly elevated blood pressure will continue monitor, patient is afebrile, normal O2 sats, respiratory and heart rate, will obtain CBC, CRP, BMP, hold on any imaging at this time, suspect developing cellulitis, no appreciable abscess on exam or drainage, will plan to jennifer the area, IM dose ceftriaxone given here, will plan to discharge with Duricef 500 mg b.i.d. over the next 7 days. Reevaluation(s) Time of Reevaluation #1: 15:49 Reevaluation #1: CBC showed no leukocytosis, comprehensive metabolic panel showed normal electrolytes and renal function, CRP mildly elevated at 4.3, she was given a dose of IM Rocephin 1 g here in the emergency department did well, prescription for Duricef 500 mg b.i.d. over the next 7 days sent to her pharmacy, she will continue with current cares at home, follow-up with primary care provider in the next 7-10 days, return if worsening symptoms. Vital Signs Vital signs: Initial Vital Signs Temperature 98.1 F 01/22/25 13:46 Temperature Source Temporal Artery Scan 01/22/25 13:46 Pulse Rate 85 01/22/25 13:46 Respiratory Rate 20 01/22/25 13:46 Blood Pressure 181/80 H 01/22/25 13:46 Blood Pressure Mean 113 H 01/22/25 13:46 Blood Pressure Position Sitting 01/22/25 13:46 Pulse Oximetry 98 01/22/25 13:46 Oxygen Delivery Method Room Air 01/22/25 13:46 Vital Signs Temperature 98.1 F 01/22/25 13:46 Pulse Rate 85 01/22/25 13:46 Respiratory Rate 20 01/22/25 13:46 Blood Pressure 181/80 H 01/22/25 13:46 Pulse Oximetry 98 01/22/25 13:46 Oxygen Delivery Method Room Air 01/22/25 13:46 Temperature 98.1 F 01/22/25 13:46 Pulse Rate 85 01/22/25 13:46 Respiratory Rate 20 01/22/25 13:46 Blood Pressure 181/80 H 01/22/25 13:46 Pulse Oximetry 98 01/22/25 13:46 Oxygen Delivery Method Room Air 01/22/25 13:46 Medications Administered Medications: Generic Name Dose Route Start Last Admin Trade Name Freq PRN Reason Stop Dose Admin Lidocaine HCl 2.1 ml 01/22/25 14:08 01/22/25 14:54 Lidocaine 1% 5 Ml (Pf) 5 Ml Vial IM 2.1 ml DIRECTED PRN Administration Pain Discontinued Medications Generic Name Dose Route Start Last Admin Trade Name Freq PRN Reason Stop Dose Admin Ceftriaxone Sodium 1 gm 01/22/25 14:08 01/22/25 14:54 Ceftriaxone 1 Gm Vial IM 01/22/25 14:09 1 gm ONCE ONE Administration Medical Decision Making Lab Data Labs: Lab Results 01/22/25 Range/Units 14:10 WBC 7.16 (4.50-11.00) K/uL RBC 5.26 H (4.00-5.20) m/uL Hgb 14.4 (12.0-16.0) gm/dL Hct 46.0 (33.0-51.0) % MCV 88 (80-100) fL MCH 27 (26-34) pg MCHC 31 L (32-36) gm/dL RDW Coeff of Deirdre 14.0 (11.5-15.5) % Plt Count 276 (140-440) K/uL Neut % (Auto) 78.5 H (42.0-72.0) % Lymph % (Auto) 14.1 L (20-44) % [place] % (Auto) 7.0 (0.0-11.0) % Eos % (Auto) 0.0 (0.0-7.0) % Baso % (Auto) 0.3 (0.0-3.0) % Neut # (Auto) 5.60 (1.7-7.0) K/uL Lymph # (Auto) 1.00 (0.90-2.90) K/uL [place] # (Auto) 0.50 (0.00-0.90) K/UL Eos # (Auto) 0.00 (0.00-0.50) K/uL Baso # (Auto) 0.02 (0.00-0.30) K/uL Abs Immat Gran (auto) 0.01 (0.00-0.30) K/uL Imm/Tot Granulo (auto) 0.1 % Sodium 134 L (135-149) mmol/L Potassium 3.8 (3.6-5.1) mmol/L Chloride 92 L (96-114) mmol/L Carbon Dioxide 33 H (20-32) mmol/L Anion Gap 9 (7-15) mEq/L BUN 25 (7-30) mg/dL Creatinine 0.8 (0.5-1.5) mg/dL Estimated Creat Clear 41.05 Estimated GFR 75 ml/min Glucose 132 H (60-115) mg/dL Calcium 9.3 (8.4-10.6) mg/dL C-Reactive Protein 4.3 H (0.5-1.0) mg/dL Discharge Plan Discharge Clinical Impression: Cellulitis of right elbow Patient Disposition: Home, Self-Care Condition: Improved Instructions: Cellulitis (ED) Additional Instructions: Duricef 500 mg twice daily over the next 7 days, continue keeping the area clean with soap and water, dressing application, compression and elevation, monitor the area for any spreading. To follow up with primary care provider the next 7-10 days. Activity Level: No Restrictions Discharge Diet: Regular Prescriptions: New cefadroxil 500 mg capsule 500 mg PO BID 7 Days Qty: 14 0RF No Action temazepam 15 mg capsule PO levothyroxine 125 mcg tablet 125 mcg PO QAM furosemide 20 mg tablet 20 mg PO QAM hydromorphone 4 mg tablet 4 mg PO Q3-4H PRN (Reason: pain) atenolol 50 mg tablet 50 mg PO BID valacyclovir 1 gram tablet 1,000 mg PO 3XD valacyclovir 500 mg tablet 500 mg PO DAILY triamterene-hydrochlorothiazid 37.5-25 mg tablet 1 tab PO QAM pregabalin 150 mg capsule 150 mg PO 3XD pantoprazole [Protonix] 20 mg tablet,delayed release (DR/EC) 20 mg PO DAILY Qty: 30 2RF duloxetine 60 mg capsule,delayed release(DR/EC) 120 mg PO DAILY Follow Up/Referrals: Lanette Lee MD [Primary Care Provider, Family Practice] Stand Alone Forms: MyHealth Info Instructions
[2025-01-22 13:46] VITALS: BP 181/80; PULSE 85; RESP 20; TEMP 36.7; O2SAT 98; BMI 23.1
[2025-01-22 14:33] LABS: White Blood Count* 7.16 K/uL (4.50-11.00)
[2025-01-22 14:34] LABS: Hematocrit* 46.0 % (33.0-51.0); Hemoglobin* 14.4 gm/dL (12.0-16.0); Immature Granulocytes Abs Auto 0.01 K/uL (0.00-0.30); Immature Granulocytes Pct Auto 0.1 %; Mean Corpuscular HGB Conc 31 gm/dL (32-36); Mean Corpuscular Hemoglobin 27 pg (26-34); Mean Corpuscular Volume 88 fL (80-100); RDW Coefficient of Variation % 14.0 % (11.5-15.5); Red Blood Count* 5.26 m/uL (4.00-5.20)
[2025-01-22 14:46] LABS: Chloride* 92 mmol/L (96-114); Sodium* 134 mmol/L (135-149)
[2025-01-22 14:47] LABS: Potassium* 3.8 mmol/L (3.6-5.1)
[2025-01-22 14:49] LABS: Blood Urea Nitrogen* 25 mg/dL (7-30); Creatinine* 0.8 mg/dL (0.5-1.5); Est. Creatinine Clearance* 41.05; Estimated Glomerular Filt Rate 75 ml/min
[2025-01-22 14:50] LABS: Anion Gap 9 mEq/L (7-15); Calcium* 9.3 mg/dL (8.4-10.6); Carbon Dioxide* 33 mmol/L (20-32); Glucose* 132 mg/dL (60-115)
[2025-01-22] MEDS: LIDOCAINE 1% 5 ml (pf) 5 ML VIAL 2.1 ML IM (14:54)
[2025-01-22] MEDS: cefTRIAXone 1 GM VIAL IM (14:54)
[2025-01-22 15:08] LABS: Lymphocytes Absolute Auto 1.00 K/uL (0.90-2.90); Slide Review Reflex No
== END 2025-01-22 15:54 | disposition home or self-care (01) ==
PROVIDERS: Emergency Provider Student in an Organized Health Care Education/Training Program; PCP Family Medicine
DX: L03.113 Cellulitis of right upper limb (principal)
CPT/HCPCS: 36415; 80048; 85025; 86140; 96372; 99284; J0696